=== PATIENT | male | born 1955 | race Caucasian/White ===

== ENCOUNTER 2018-09-20 11:11 | Inpatient (IN) | payer MEDICARE, MEDICAID ==
[2018-09-20] MEDS ORDERED: Heparin Sodium/D5W 25,000 UNITS/500 ML BAG IV SCH (12:15)
[2018-09-20] MEDS ORDERED: Heparin Sodium 5,000 Units/ML Vial IVPUSH ONE ×2 (12:30→19:46)
[2018-09-20] MEDS ORDERED: Flecainide 50 MG Tab PO ONE (12:30)
[2018-09-20] MEDS ORDERED: Diltiazem 25 MG/5 ML SDV IVPUSH ONE (12:45)
[2018-09-20] MEDS ORDERED: Digoxin 500 MCG/2 ML Amp IVPUSH ONE ×3 (12:59→21:00)
[2018-09-20] MEDS: Flecainide 50 MG Tab PO SCH (17:50)
[2018-09-20] MEDS ORDERED: Diltiazem 120 MG Cap.CD PO ONE (18:42)
--- NOTE | 2018-09-20 18:54 | PCM.HP ---
H&P History of Present Illness - General Date of Service: 09/20/18 Source of Information: Patient - History of Present Illness Initial Comments - Free Text/Narative: Keo called this morning and said his heart became irregular Thursday morning at 2 AM and has been irregular ever since. He has a history of Atrial fib. and taking medicine as directed. He is also followed by a Bit Gatherer in [place] on a regular basis. He denies any chest pains or respiratory distress. Onset of Symptoms: Reports: Sudden Duration of Symptoms: Reports: Hour(s): Associated Symptoms: Reports: Diaphoresis, Weakness - Related Data Allergies/Adverse Reactions: Allergies Allergy/AdvReac Type Severity Reaction Status Date / Time POMEGRANIT Allergy Arrhythmias Uncoded 09/20/18 11:59 Home Medications: Home Meds Aspirin [Adult Low Dose Aspirin EC] 81 mg PO DAILY 08/24/13 [History] Metoprolol Tartrate 50 mg PO BID 08/24/13 [History] Flecainide [Tambocor] 100 mg PO BID 12/16/13 [History] Past Medical History Cardiovascular History: Reports: Afib, Arrhythmia, Hypertension Musculoskeletal History: Reports: Fracture, Other (See Below) Other Musculoskeletal History: RIGHT SHOULDER DISLOCATION, HX OF RIGHT WRIST FX - Infectious Disease History Infectious Disease History: Reports: Chicken Pox - Past Surgical History Cardiovascular Surgical History: Reports: Cardiac Ablation Social & Family History - Tobacco Use Smoking Status *Q: Never Smoker - Caffeine Use Caffeine Use: Reports: Coffee - Recreational Drug Use Recreational Drug Use: No H&P Review of Systems - Review of Systems: Review Of Systems: See Below General: Reports: Weakness, Diaphoresis HEENT: Reports: No Symptoms Pulmonary: Reports: No Symptoms Cardiovascular: Reports: Palpitations Gastrointestinal: Reports: No Symptoms Genitourinary: Reports: No Symptoms Musculoskeletal: Reports: No Symptoms Skin: Reports: No Symptoms Psychiatric: Reports: No Symptoms Neurological: Reports: No Symptoms Hematologic/Lymphatic: Reports: No Symptoms Immunologic: Reports: No Symptoms Exam - Exam Exam: See Below - Vital Signs Vital Signs: Last Vital Signs Temp 98.1 F 09/20/18 17:58 Pulse 116 H 09/20/18 17:58 Resp 15 09/20/18 17:58 BP 126/71 09/20/18 17:58 Pulse Ox 95 09/20/18 17:58 Weight: 250 lb 4.8 oz - Exam General: Alert, Oriented, 4 HEENT: PERRLA, Hearing Intact, Mucosa Moist & [place], Nares Patent, Normal Nasal Septum, Posterior Pharynx Clear, Conjunctiva Clear, EOMI, EACs Clear, TMs Clear Neck: Supple, Trachea Midline, 2 Lungs: Clear to Auscultation, Normal Respiratory Effort Cardiovascular: Irregular Rhythm, Tachycardia GI/Abdominal Exam: Normal Bowel Sounds, Soft, Non-Tender, No Organomegaly, No Distention, No Abnormal Bruit, No Mass, Pelvis Stable Back Exam: Normal Inspection Extremities: Normal Inspection Peripheral Pulses: 1+: Radial (L), Radial (R) Skin: Warm, Dry Neurological: Cranial Nerves Intact Neuro Extensive - Mental Status: Alert, Oriented x3 Neuro Extensive - Motor, Sensory, Reflexes: Normal Gait Psychiatric: Alert - Patient Data Lab Results Last 24 hrs: Laboratory Results - last 24 hr 09/20/18 09/20/18 09/20/18 Range/Units 12:24 12:40 12:40 WBC 9.9 (4.5-11.0) K/uL RBC 5.31 (4.30-5.90) M/uL Hgb 16.1 H (12.0-15.0) g/dL Hct 47.1 (40.0-54.0) % MCV 89 (80-98) fL MCH 30 (27-31) pg MCHC 34 (32-36) % Plt Count 308 (150-400) K/uL APTT 24.3 L (27.0-36.0) sec Sodium 140 (140-148) mmol/L Potassium 4.9 (3.6-5.2) mmol/L Chloride 106 (100-108) mmol/L Carbon Dioxide 22 (21-32) mmol/L Anion Gap 12.1 (5.0-14.0) mmol/L BUN 30 H (7-18) mg/dL Creatinine 0.9 (0.8-1.3) mg/dL Est Cr Clr Drug Dosing 89.81 mL/min Estimated GFR (MDRD) > 60 (>60) Glucose 107 H (74-106) mg/dL Calcium 9.1 (8.5-10.1) mg/dL Total Bilirubin 0.4 D (0.2-1.0) mg/dL AST 46 H (15-37) U/L ALT 67 (12-78) U/L Alkaline Phosphatase 77 (46-116) U/L Creatine Kinase 338 H (39-308) U/L CK-MB (CK-2) 9.3 H* (0-3.6) mg/mL Troponin I 0.037 (0.000-0.056) ng/mL Total Protein 7.6 (6.4-8.2) g/dL Albumin 3.7 (3.4-5.0) g/dL Globulin 3.9 H (2.3-3.5) g/dL Albumin/Globulin Ratio 1.0 L (1.2-2.2) Result Diagrams: 09/20/18 12:24 09/20/18 12:40 Problem List Initiated/Reviewed/Updated: Yes Orders Last 24hrs: Active Orders 24 hr Category Date Time Status EKG Documentation Completion [RC] ASDIRECTED Care 09/20/18 13:03 Active Vital Signs [RC] Q2H Care 09/20/18 12:28 Active NPO After Midnight [Nothing per Oral After Midnight Diet 09/21/18 Breakfast Active Diet] [DIET] Regular Diet [DIET] Diet 09/20/18 Dinner Active PTT,PARTIAL THROMBOPLSTIN TIME [COAG] Routine Lab 09/20/18 19:00 Ordered TROPONIN I [CHEM] Routine Lab 09/20/18 19:00 Ordered TROPONIN I [CHEM] Timed Lab 09/21/18 02:00 Ordered Aspirin [Halfprin] Med 09/21/18 09:00 Active 81 mg PO DAILY Digoxin [Lanoxin] Med 09/20/18 18:47 Once 250 mcg IVPUSH ONETIME ONE Digoxin [Lanoxin] Med 09/20/18 21:00 Once 250 mcg IVPUSH ONETIME ONE Diltiazem [Cardizem CD] Med 09/20/18 18:42 Once 240 mg PO ONETIME ONE Flecainide [Tambocor] Med 09/20/18 18:00 Active 150 mg PO BID Heparin Sodium/D5W [Heparin 25,000 Units in D5W 500 ML] Med 09/20/18 12:15 Active 25,000 units in 500 ml IV TITRATE Metoprolol Tartrate [Lopressor] Med 09/20/18 21:00 Active 100 mg PO BID EKG 12 Lead [EK] Stat Ther 09/20/18 13:02 Ordered Medication Orders Aspirin (Halfprin) 81 mg PO DAILY [facility] Digoxin (Lanoxin) 250 mcg IVPUSH ONETIME ONE Stop: 09/20/18 18:48 Digoxin (Lanoxin) 250 mcg IVPUSH ONETIME ONE Stop: 09/20/18 21:01 Diltiazem HCl (Cardizem Cd) 240 mg PO ONETIME ONE Stop: 09/20/18 18:43 Flecainide Acetate (Tambocor) 150 mg PO BID [facility] Last Admin: 09/20/18 17:50 Dose: 150 mg Heparin Sodium/Dextrose (Heparin 25,000 Units In D5w 500 Ml) 25,000 units in 500 mls @ 20 mls/hr IV TITRATE [facility]; Protocol Last Admin: 09/20/18 13:06 Dose: 20 mls/hr, 20 mls/hr Metoprolol Tartrate (Lopressor) 100 mg PO BID [facility] Assessment/Plan Comment:: Assessment/Plan: #1. Atrial fibrillation: Have started him on his medication and will give Cardizem IV push 28 mg. This was done then went bradycardiac after giving carotid massage and mid abdominal pressure. Have started him on Heparin IV drip. I also spoke with the Bit Gatherer who would see him within a month. He is ok with cardioversion as well. Last time we cardioverted him (de- fib) and he stayed in rhythm for several months. Will plan to do cardioversion in the morning at 8:30. I have also increased Flecainide to 150mg Bid. Also started him on Cardizem 240 mg daily. Trop was negative and was elevation of CK - MB at 9.3 normal up to 3.6. Repeat labs are pending. #2. Hypertension: Stable control #2. Hyperlipidemia:
[2018-09-20] MEDS ORDERED: Metoprolol Tartrate 50 MG Tab PO SCH (21:00)
[2018-09-20] MEDS ORDERED: Metoprolol Tartrate 50 MG Tab PO ONE (21:00)
[2018-09-20] MEDS ORDERED: Flecainide 50 MG Tab PO SCH (21:00)
[2018-09-21] MEDS: Flecainide 50 MG Tab PO SCH (08:46)
[2018-09-21] MEDS ORDERED: Aspirin 81 MG Tab.EC PO SCH (09:00)
[2018-09-21] MEDS ORDERED: Metoprolol Succinate 50 MG Tab.ER PO SCH (09:00)
--- NOTE | 2018-09-21 11:26 | PCM.PN ---
- General Info Date of Service: 09/21/18 Functional Status: Reports: Pain Controlled - Review of Systems General: Reports: No Symptoms HEENT: Reports: No Symptoms Pulmonary: Reports: No Symptoms Cardiovascular: Reports: No Symptoms, Other (He converted to NSR at 4 AM) Gastrointestinal: Reports: No Symptoms Genitourinary: Reports: No Symptoms Musculoskeletal: Reports: No Symptoms Skin: Reports: No Symptoms Neurological: Reports: No Symptoms Psychiatric: Reports: No Symptoms - Patient Data Vitals - Most Recent: Last Vital Signs Temp 98.6 F 09/21/18 10:00 Pulse 58 L 09/21/18 10:00 Resp 14 09/21/18 10:00 BP 122/73 09/21/18 10:00 Pulse Ox 95 09/21/18 10:00 Orthostatic Blood Pressure [ 120/85 Standing] Orthostatic Blood Pressure [ 135/79 Sitting] Orthostatic Blood Pressure [ 132/76 Supine] Weight - Most Recent: 250 lb 4.8 oz I&O - Last 24 Hours: Intake & Output 09/20/18 09/21/18 09/21/18 22:59 06:59 14:59 Intake Total 326 282 Output Total 325 150 Balance 1 132 Lab Results Last 24 Hours: Laboratory Results - last 24 hr 09/20/18 09/20/18 09/20/18 Range/Units 12:24 12:40 12:40 WBC 9.9 (4.5-11.0) K/uL RBC 5.31 (4.30-5.90) M/uL Hgb 16.1 H (12.0-15.0) g/dL Hct 47.1 (40.0-54.0) % MCV 89 (80-98) fL MCH 30 (27-31) pg MCHC 34 (32-36) % Plt Count 308 (150-400) K/uL APTT 24.3 L (27.0-36.0) sec Sodium 140 (140-148) mmol/L Potassium 4.9 (3.6-5.2) mmol/L Chloride 106 (100-108) mmol/L Carbon Dioxide 22 (21-32) mmol/L Anion Gap 12.1 (5.0-14.0) mmol/L BUN 30 H (7-18) mg/dL Creatinine 0.9 (0.8-1.3) mg/dL Est Cr Clr Drug Dosing 89.81 mL/min Estimated GFR (MDRD) > 60 (>60) Glucose 107 H (74-106) mg/dL Calcium 9.1 (8.5-10.1) mg/dL Total Bilirubin 0.4 D (0.2-1.0) mg/dL AST 46 H (15-37) U/L ALT 67 (12-78) U/L Alkaline Phosphatase 77 (46-116) U/L Creatine Kinase 338 H (39-308) U/L CK-MB (CK-2) 9.3 H* (0-3.6) mg/mL Troponin I 0.037 (0.000-0.056) ng/mL Total Protein 7.6 (6.4-8.2) g/dL Albumin 3.7 (3.4-5.0) g/dL Globulin 3.9 H (2.3-3.5) g/dL Albumin/Globulin Ratio 1.0 L (1.2-2.2) 09/20/18 09/20/18 09/21/18 Range/Units 19:05 19:05 02:05 WBC (4.5-11.0) K/uL RBC (4.30-5.90) M/uL Hgb (12.0-15.0) g/dL Hct (40.0-54.0) % MCV (80-98) fL MCH (27-31) pg MCHC (32-36) % Plt Count (150-400) K/uL APTT 28.0 (27.0-36.0) sec Sodium (140-148) mmol/L Potassium (3.6-5.2) mmol/L Chloride (100-108) mmol/L Carbon Dioxide (21-32) mmol/L Anion Gap (5.0-14.0) mmol/L BUN (7-18) mg/dL Creatinine (0.8-1.3) mg/dL Est Cr Clr Drug Dosing mL/min Estimated GFR (MDRD) (>60) Glucose (74-106) mg/dL Calcium (8.5-10.1) mg/dL Total Bilirubin (0.2-1.0) mg/dL AST (15-37) U/L ALT (12-78) U/L Alkaline Phosphatase (46-116) U/L Creatine Kinase (39-308) U/L CK-MB (CK-2) (0-3.6) mg/mL Troponin I 0.034 0.044 (0.000-0.056) ng/mL Total Protein (6.4-8.2) g/dL Albumin (3.4-5.0) g/dL Globulin (2.3-3.5) g/dL Albumin/Globulin Ratio (1.2-2.2) 09/21/18 Range/Units 02:05 WBC (4.5-11.0) K/uL RBC (4.30-5.90) M/uL Hgb (12.0-15.0) g/dL Hct (40.0-54.0) % MCV (80-98) fL MCH (27-31) pg MCHC (32-36) % Plt Count (150-400) K/uL APTT 32.3 (27.0-36.0) sec Sodium (140-148) mmol/L Potassium (3.6-5.2) mmol/L Chloride (100-108) mmol/L Carbon Dioxide (21-32) mmol/L Anion Gap (5.0-14.0) mmol/L BUN (7-18) mg/dL Creatinine (0.8-1.3) mg/dL Est Cr Clr Drug Dosing mL/min Estimated GFR (MDRD) (>60) Glucose (74-106) mg/dL Calcium (8.5-10.1) mg/dL Total Bilirubin (0.2-1.0) mg/dL AST (15-37) U/L ALT (12-78) U/L Alkaline Phosphatase (46-116) U/L Creatine Kinase (39-308) U/L CK-MB (CK-2) (0-3.6) mg/mL Troponin I (0.000-0.056) ng/mL Total Protein (6.4-8.2) g/dL Albumin (3.4-5.0) g/dL Globulin (2.3-3.5) g/dL Albumin/Globulin Ratio (1.2-2.2) Med Orders - Current: Current Medications Aspirin (Halfprin) 81 mg PO DAILY [facility] Last Admin: 09/21/18 08:46 Dose: 81 mg Flecainide Acetate (Tambocor) 150 mg PO BID [facility] Last Admin: 09/21/18 08:46 Dose: 150 mg Heparin Sodium/Dextrose (Heparin 25,000 Units In D5w 500 Ml) 25,000 units in 500 mls @ 20 mls/hr IV TITRATE [facility]; Protocol Last Titration: 09/20/18 20:03 Dose: 24 mls/hr, 24 mls/hr Metoprolol Succinate (Toprol Xl) 100 mg PO DAILY [facility] Last Admin: 09/21/18 08:44 Dose: 100 mg Discontinued Medications Digoxin (Lanoxin) 250 mcg IVPUSH ONETIME ONE Stop: 09/20/18 13:00 Last Admin: 09/20/18 13:40 Dose: Not Given Digoxin (Lanoxin) 250 mcg IVPUSH ONETIME ONE Stop: 09/20/18 18:48 Last Admin: 09/20/18 20:05 Dose: 250 mcg Digoxin (Lanoxin) 250 mcg IVPUSH ONETIME ONE Stop: 09/20/18 21:01 Last Admin: 09/20/18 22:28 Dose: 250 mcg Diltiazem HCl (Diltiazem) 28 mg IVPUSH ONETIME ONE Stop: 09/20/18 12:46 Last Admin: 09/20/18 12:49 Dose: 28 mg Diltiazem HCl (Cardizem Cd) 240 mg PO ONETIME ONE Stop: 09/20/18 18:43 Last Admin: 09/20/18 20:06 Dose: 240 mg Flecainide Acetate (Tambocor) 200 mg PO NOW ONE Stop: 09/20/18 12:31 Last Admin: 09/20/18 13:21 Dose: Not Given Flecainide Acetate (Tambocor) 100 mg PO BID [facility] Heparin Sodium (Porcine) (Heparin Sodium) 4,000 units IVPUSH ONETIME ONE Stop: 09/20/18 12:31 Last Admin: 09/20/18 13:06 Dose: 4,000 units Heparin Sodium (Porcine) (Heparin Sodium) 2,000 units IVPUSH .BOLUS ONE Stop: 09/20/18 19:47 Last Admin: 09/20/18 20:03 Dose: 2,000 units Metoprolol Tartrate (Lopressor) 100 mg PO BID [facility] Metoprolol Tartrate (Lopressor) 50 mg PO ONETIME ONE Stop: 09/20/18 21:01 Last Admin: 09/20/18 22:29 Dose: 50 mg - Exam General: Alert, Oriented HEENT: Pupils Equal, Pupils Reactive, EOMI, Mucous Membr. Moist/[place] Neck: Supple Lungs: Clear to Auscultation, Normal Respiratory Effort Cardiovascular: Regular Rate, Regular Rhythm GI/Abdominal Exam: Normal Bowel Sounds, Soft, Non-Tender, No Organomegaly, No Distention, No Abnormal Bruit, No Mass, Pelvis Stable Extremities: Normal Inspection, Normal Range of Motion, Non-Tender, No Pedal Edema, Normal Capillary Refill Peripheral Pulses: 1+: Radial (L), Radial (R) Skin: Warm, Dry, Intact Neurological: No New Focal Deficit Psy/Mental Status: Alert, Normal Affect, Normal Mood - Problem List Review Problem List Initiated/Reviewed/Updated: Yes - My Orders Last 24 Hours: My Active Orders 09/20/18 12:15 Heparin Sodium/D5W [Heparin 25,000 Units in D5W 500 ML] 25,000 units in 500 ml IV TITRATE 09/20/18 12:28 Vital Signs [RC] Q1H 09/20/18 13:02 EKG 12 Lead [EK] Stat 09/20/18 18:00 Flecainide [Tambocor] 150 mg PO BID 09/20/18 19:12 EKG 12 Lead [EK] Routine 09/21/18 07:00 EKG 12 Lead [EK] Routine 09/21/18 07:30 EKG Documentation Completion [RC] ASDIRECTED EKG 12 Lead [EK] Routine 09/21/18 09:00 Aspirin [Halfprin] 81 mg PO DAILY Metoprolol Succinate [Toprol XL] 100 mg PO DAILY 09/21/18 Breakfast Regular Diet [DIET] - Plan Plan:: Assessment/Plan: #1. Atrial fibrillation converted to NSR at 4 AM: Will continue with 150 mg of Flecainide and Diltiazem 240 mg. He had a stress test in the past which was normal. #2. Hypertension: Stable control #2. Hyperlipidemia: Will discharge home today. To follow up with the fountain dispenser. Will see him in the office in 1-2 weeks.
--- NOTE | 2018-09-21 11:35 | PCM.DCSUM1 ---
Discharge Summary - Hospital Course HPI Initial Comments: Admitted after an onset of Atrial Fib feeling weak and having a rapid heart rate. Diagnosis: Stroke: No - Discharge Data Discharge Date: 09/21/18 Discharge Disposition: Home, Self-Care 01 Condition: Good - Discharge Plan *PRESCRIPTION DRUG MONITORING PROGRAM REVIEWED*: Not Applicable *COPY OF PRESCRIPTION DRUG MONITORING REPORT IN PATIENT KENJI: Not Applicable Home Medications: Home Meds Aspirin [Adult Low Dose Aspirin EC] 81 mg PO DAILY 08/24/13 [History] Aspirin [Halfprin] 81 mg PO DAILY tab.ec 09/21/18 [Rx] Flecainide [Tambocor] 150 mg PO BID tablet 09/21/18 [Rx] Metoprolol Succinate [Toprol XL 50mg] 100 mg PO DAILY tab.er 09/21/18 [Rx] - Discharge Summary/Plan Comment DC Time >30 min.: No Discharge Summary/Plan Comment: Assessment/Plan: #1. Atrial fibrillation converted to NSR at 4 AM: Will continue with 150 mg of Flecainide and Diltiazem 240 mg. He had a stress test in the past which was normal. He will start on Eliquis 5 mg twice daily. Trop was neg times 3 also in RBBB. #2. Hypertension: Stable control. 122/73 with heart rate 58 #2. Hyperlipidemia: Will discharge home today. To follow up with the steel loader. Will see him in the office in 1-2 weeks. - General Info Date of Service: 09/21/18 Subjective Update: Admitted with a rapid heart rate in Atrial Feb with weakness. - Review of Systems General: Reports: Weakness, Fatigue HEENT: Reports: No Symptoms Pulmonary: Reports: No Symptoms Cardiovascular: Reports: Palpitations, Dyspnea on Exertion Gastrointestinal: Reports: No Symptoms Genitourinary: Reports: No Symptoms Musculoskeletal: Reports: No Symptoms Skin: Reports: No Symptoms Neurological: Reports: No Symptoms Psychiatric: Reports: No Symptoms - Patient Data Vitals - Most Recent: Last Vital Signs Temp 98.6 F 09/21/18 10:00 Pulse 58 L 09/21/18 10:00 Resp 14 09/21/18 10:00 BP 122/73 09/21/18 10:00 Pulse Ox 95 09/21/18 10:00 Orthostatic Blood Pressure [ 120/85 Standing] Orthostatic Blood Pressure [ 135/79 Sitting] Orthostatic Blood Pressure [ 132/76 Supine] Weight - Most Recent: 250 lb 4.8 oz I&O - Last 24 hours: Intake & Output 09/20/18 09/21/18 09/21/18 22:59 06:59 14:59 Intake Total 326 282 Output Total 325 150 Balance 1 132 Lab Results - Last 24 hrs: Laboratory Results - last 24 hr 09/20/18 09/20/18 09/20/18 Range/Units 12:24 12:40 12:40 WBC 9.9 (4.5-11.0) K/uL RBC 5.31 (4.30-5.90) M/uL Hgb 16.1 H (12.0-15.0) g/dL Hct 47.1 (40.0-54.0) % MCV 89 (80-98) fL MCH 30 (27-31) pg MCHC 34 (32-36) % Plt Count 308 (150-400) K/uL APTT 24.3 L (27.0-36.0) sec Sodium 140 (140-148) mmol/L Potassium 4.9 (3.6-5.2) mmol/L Chloride 106 (100-108) mmol/L Carbon Dioxide 22 (21-32) mmol/L Anion Gap 12.1 (5.0-14.0) mmol/L BUN 30 H (7-18) mg/dL Creatinine 0.9 (0.8-1.3) mg/dL Est Cr Clr Drug Dosing 89.81 mL/min Estimated GFR (MDRD) > 60 (>60) Glucose 107 H (74-106) mg/dL Calcium 9.1 (8.5-10.1) mg/dL Total Bilirubin 0.4 D (0.2-1.0) mg/dL AST 46 H (15-37) U/L ALT 67 (12-78) U/L Alkaline Phosphatase 77 (46-116) U/L Creatine Kinase 338 H (39-308) U/L CK-MB (CK-2) 9.3 H* (0-3.6) mg/mL Troponin I 0.037 (0.000-0.056) ng/mL Total Protein 7.6 (6.4-8.2) g/dL Albumin 3.7 (3.4-5.0) g/dL Globulin 3.9 H (2.3-3.5) g/dL Albumin/Globulin Ratio 1.0 L (1.2-2.2) 09/20/18 09/20/18 09/21/18 Range/Units 19:05 19:05 02:05 WBC (4.5-11.0) K/uL RBC (4.30-5.90) M/uL Hgb (12.0-15.0) g/dL Hct (40.0-54.0) % MCV (80-98) fL MCH (27-31) pg MCHC (32-36) % Plt Count (150-400) K/uL APTT 28.0 (27.0-36.0) sec Sodium (140-148) mmol/L Potassium (3.6-5.2) mmol/L Chloride (100-108) mmol/L Carbon Dioxide (21-32) mmol/L Anion Gap (5.0-14.0) mmol/L BUN (7-18) mg/dL Creatinine (0.8-1.3) mg/dL Est Cr Clr Drug Dosing mL/min Estimated GFR (MDRD) (>60) Glucose (74-106) mg/dL Calcium (8.5-10.1) mg/dL Total Bilirubin (0.2-1.0) mg/dL AST (15-37) U/L ALT (12-78) U/L Alkaline Phosphatase (46-116) U/L Creatine Kinase (39-308) U/L CK-MB (CK-2) (0-3.6) mg/mL Troponin I 0.034 0.044 (0.000-0.056) ng/mL Total Protein (6.4-8.2) g/dL Albumin (3.4-5.0) g/dL Globulin (2.3-3.5) g/dL Albumin/Globulin Ratio (1.2-2.2) 09/21/18 Range/Units 02:05 WBC (4.5-11.0) K/uL RBC (4.30-5.90) M/uL Hgb (12.0-15.0) g/dL Hct (40.0-54.0) % MCV (80-98) fL MCH (27-31) pg MCHC (32-36) % Plt Count (150-400) K/uL APTT 32.3 (27.0-36.0) sec Sodium (140-148) mmol/L Potassium (3.6-5.2) mmol/L Chloride (100-108) mmol/L Carbon Dioxide (21-32) mmol/L Anion Gap (5.0-14.0) mmol/L BUN (7-18) mg/dL Creatinine (0.8-1.3) mg/dL Est Cr Clr Drug Dosing mL/min Estimated GFR (MDRD) (>60) Glucose (74-106) mg/dL Calcium (8.5-10.1) mg/dL Total Bilirubin (0.2-1.0) mg/dL AST (15-37) U/L ALT (12-78) U/L Alkaline Phosphatase (46-116) U/L Creatine Kinase (39-308) U/L CK-MB (CK-2) (0-3.6) mg/mL Troponin I (0.000-0.056) ng/mL Total Protein (6.4-8.2) g/dL Albumin (3.4-5.0) g/dL Globulin (2.3-3.5) g/dL Albumin/Globulin Ratio (1.2-2.2) Med Orders - Current: Current Medications Aspirin (Halfprin) 81 mg PO DAILY [facility] Last Admin: 09/21/18 08:46 Dose: 81 mg Flecainide Acetate (Tambocor) 150 mg PO BID [facility] Last Admin: 09/21/18 08:46 Dose: 150 mg Heparin Sodium/Dextrose (Heparin 25,000 Units In D5w 500 Ml) 25,000 units in 500 mls @ 20 mls/hr IV TITRATE [facility]; Protocol Last Titration: 09/20/18 20:03 Dose: 24 mls/hr, 24 mls/hr Metoprolol Succinate (Toprol Xl) 100 mg PO DAILY [facility] Last Admin: 09/21/18 08:44 Dose: 100 mg Discontinued Medications Digoxin (Lanoxin) 250 mcg IVPUSH ONETIME ONE Stop: 09/20/18 13:00 Last Admin: 09/20/18 13:40 Dose: Not Given Digoxin (Lanoxin) 250 mcg IVPUSH ONETIME ONE Stop: 09/20/18 18:48 Last Admin: 09/20/18 20:05 Dose: 250 mcg Digoxin (Lanoxin) 250 mcg IVPUSH ONETIME ONE Stop: 09/20/18 21:01 Last Admin: 09/20/18 22:28 Dose: 250 mcg Diltiazem HCl (Diltiazem) 28 mg IVPUSH ONETIME ONE Stop: 09/20/18 12:46 Last Admin: 09/20/18 12:49 Dose: 28 mg Diltiazem HCl (Cardizem Cd) 240 mg PO ONETIME ONE Stop: 09/20/18 18:43 Last Admin: 09/20/18 20:06 Dose: 240 mg Flecainide Acetate (Tambocor) 200 mg PO NOW ONE Stop: 09/20/18 12:31 Last Admin: 09/20/18 13:21 Dose: Not Given Flecainide Acetate (Tambocor) 100 mg PO BID [facility] Heparin Sodium (Porcine) (Heparin Sodium) 4,000 units IVPUSH ONETIME ONE Stop: 09/20/18 12:31 Last Admin: 09/20/18 13:06 Dose: 4,000 units Heparin Sodium (Porcine) (Heparin Sodium) 2,000 units IVPUSH .BOLUS ONE Stop: 09/20/18 19:47 Last Admin: 09/20/18 20:03 Dose: 2,000 units Metoprolol Tartrate (Lopressor) 100 mg PO BID [facility] Metoprolol Tartrate (Lopressor) 50 mg PO ONETIME ONE Stop: 09/20/18 21:01 Last Admin: 09/20/18 22:29 Dose: 50 mg - Exam General: Reports: Alert, Oriented HEENT: Reports: Pupils Equal, Pupils Reactive, EOMI, Mucous Membr. Moist/[place] Neck: Reports: Supple Lungs: Reports: Clear to Auscultation, Normal Respiratory Effort Cardiovascular: Reports: Regular Rate, Regular Rhythm GI/Abdominal Exam: Normal Bowel Sounds, Soft, Non-Tender, No Organomegaly, No Distention, No Abnormal Bruit, No Mass, Pelvis Stable Back Exam: Reports: Normal Inspection, Full Range of Motion Extremities: Normal Inspection, Normal Range of Motion, Non-Tender, No Pedal Edema, Normal Capillary Refill Skin: Reports: Warm, Dry, Intact Neurological: Reports: No New Focal Deficit Psy/Mental Status: Reports: Alert, Normal Affect, Normal Mood
== END 2018-09-21 11:59 | disposition home or self-care (01) | DRG 310 ==
LOC: JP.ICU 11:11
PROVIDERS: ADMIT Internal Medicine; ATTEND Internal Medicine
DX: I48.0 Paroxysmal atrial fibrillation (principal); I10 Essential (primary) hypertension; I45.10 Unspecified right bundle-branch block; E78.5 Hyperlipidemia, unspecified; Z79.82 Long term (current) use of aspirin; Z91.018 Allergy to other foods; Z87.898 Personal history of other specified conditions
CPT/HCPCS: 36415; 80053; 82550; 82553; 84484; 85027; 85730; 93005; A9270-GY; J1160; J1644; J3490

== ENCOUNTER 2018-12-30 09:23 | Emergency (ER) | payer MEDICARE, MEDICAID ==
[2018-12-30] MEDS ORDERED: HYDROmorphone 0.5 MG/0.5 ML Syringe IVPUSH ONE (09:53)
--- NOTE | 2018-12-30 09:53 | EDM.PDOC ---
ED HPI GENERAL MEDICAL PROBLEM - General Chief Complaint: Upper Extremity Injury/Pain Stated Complaint: DISLOCATED RIGHT SHOULDER Time Seen by Provider: 12/30/18 09:50 Source of Information: Reports: Patient History Limitations: Reports: No Limitations - History of Present Illness INITIAL COMMENTS - FREE TEXT/NARRATIVE: pt arrived with a painful rt shoulder. He picked something up to throw in the webber and he heard something pop and his houlder was out. He did dislocate it previously several years ago. Onset: Today, Sudden Duration: Hour(s): Location: Reports: Upper Extremity, Right Associated Symptoms: Reports: No Other Symptoms shoulder Pain Score (Numeric/FACES): 7 - Related Data Allergies Allergy/AdvReac Type Severity Reaction Status Date / Time pomegranate Allergy Arrhythmias Verified 12/31/18 09:50 Home Meds: Home Meds Aspirin [Halfprin] 81 mg PO DAILY tab.ec 09/21/18 [Rx] Flecainide [Tambocor] 150 mg PO BID tablet 09/21/18 [Rx] Metoprolol Succinate [Toprol XL 50mg] 100 mg PO DAILY tab.er 09/21/18 [Rx] Past Medical History HEENT History: Reports: Impaired Vision Cardiovascular History: Reports: Afib, Arrhythmia, Hypertension Musculoskeletal History: Reports: Fracture, Other (See Below) Other Musculoskeletal History: RIGHT SHOULDER DISLOCATION, HX OF RIGHT WRIST FX - Infectious Disease History Infectious Disease History: Reports: Chicken Pox - Past Surgical History Cardiovascular Surgical History: Reports: Cardiac Ablation Social & Family History - Tobacco Use Smoking Status *Q: Never Smoker - Caffeine Use Caffeine Use: Reports: Coffee - Recreational Drug Use Recreational Drug Use: No Review of Systems - Review of Systems Review Of Systems: See Below Constitutional: Reports: No Symptoms Eyes: Reports: No Symptoms Ears: Reports: No Symptoms Nose: Reports: No Symptoms Mouth/Throat: Reports: No Symptoms Respiratory: Reports: No Symptoms Cardiovascular: Reports: No Symptoms GI/Abdominal: Reports: No Symptoms Genitourinary: Reports: No Symptoms Musculoskeletal: Reports: Arm Pain, Other (pt has a dislocated rt shoulder. ) Skin: Reports: No Symptoms ED EXAM, GENERAL - Physical Exam Exam: See Below Free Text/Narrative:: pt arrived with a very painful rt shoulder. He feels that it is dislocated. Exam Limited By: No Limitations General Appearance: Alert, Anxious, Moderate Distress Ears: Normal TMs Nose: Normal Inspection Throat/Mouth: Normal Inspection Head: Atraumatic Neck: Normal Inspection Respiratory/Chest: No Respiratory Distress Cardiovascular: Irregularly Irregular GI/Abdominal: Soft, Non-Tender (Male) Exam: Normal Inspection, Deferred Rectal (Males) Exam: Deferred Back Exam: Normal Inspection Extremities: Normal Inspection Neurological: Alert, Oriented, Normal Cognition Psychiatric: Anxious Course - Vital Signs Last Recorded V/S: Last Vital Signs Temp 35.5 C 12/30/18 09:41 Pulse 47 L 12/30/18 11:21 Resp 13 12/30/18 11:21 BP 109/65 12/30/18 11:21 Pulse Ox 92 L 12/30/18 11:21 - Orders/Labs/Meds Meds: Medications Discontinued Medications Generic Name Dose Route Start Last Admin Trade Name Johnny PRN Reason Stop Dose Admin Hydromorphone HCl 0.5 mg 12/30/18 09:53 12/30/18 09:57 Dilaudid IVPUSH 12/30/18 09:54 0.5 mg ONETIME ONE Administration Ondansetron HCl 4 mg 12/30/18 10:00 12/30/18 10:08 Zofran IVPUSH 12/30/18 10:01 4 mg ONETIME ONE Administration Propofol Confirm 12/30/18 10:32 Diprivan 20 Ml Administered 12/30/18 10:33 Dose 200 mg .ROUTE .STK-MED ONE - Re-Assessments/Exams Free Text/Narrative Re-Assessment/Exam: 12/30/18 10:34 pt had a posterior dislocation of his rt shoulder. He had a post reduction film which showed relocation with no visible fractures. Departure - Departure Time of Disposition: 11:45 Disposition: Home, Self-Care 01 Condition: Fair Clinical Impression: Dislocation, shoulder, posterior - Discharge Information Instructions: Shoulder Dislocation, [id number] Referrals: Octavio Dumont Sr, MD [Primary Care Provider] - Forms: ED Department Discharge Care Plan Goals: shoulder imoblizer wear for the next week, motrin 600mg as needed for pain. may be out of the shoulder imoblizer and do lite activity, avoid heavy lifting.appt with Dr Ca in 1 week.
[2018-12-30] MEDS ORDERED: Ondansetron 4 MG/2 ML SDV IVPUSH ONE (10:00)
[2018-12-30] MEDS ORDERED: Propofol 200 MG/20 ML SDV ONE (10:32)
--- NOTE | 2018-12-30 10:59 | CRLCR ---
Indication: Dislocation Technique: Two views of the right shoulder Comparison: None available. Findings/Impression: Bones: An anteroinferior glenohumeral dislocation. No displaced fracture is seen. Joint spaces: Unremarkable. Soft tissues: Unremarkable. Dictated by Myke Harrison MD @ 12/30/2018 10:56:47 AM Dictated by: Myke Harrison MD @ 12/30/2018 10:56:50 (Electronically Signed)
--- NOTE | 2018-12-30 11:10 | CRLCR ---
HISTORY: Shoulder dislocation. Post reduction. TECHNIQUE: Right shoulder 2 views. COMPARISON: Radiographs 12/30/2018. FINDINGS: Glenohumeral joint dislocation has been reduced. Humeral head Hill-Sachs impaction fracture. Degenerative arthrosis of the AC joint. IMPRESSION: Reduction of glenohumeral joint dislocation. Dictated by Thiago Main MD @ Dec 30 2018 11:06AM Signed by Dr. Thiago Main @ Dec 30 2018 11:07AM
== END 2018-12-30 11:45 | disposition home or self-care (01) ==
LOC: JP.ED 09:23
DX: S43.024A Posterior dislocation of right humerus, initial encounter (principal); I48.91 Unspecified atrial fibrillation; Z91.018 Allergy to other foods; Z79.82 Long term (current) use of aspirin; Z79.899 Other long term (current) drug therapy; Z87.891 Personal history of nicotine dependence; X50.0XXA Overexertion from strenuous movement or load, initial encounter
CPT/HCPCS: 23650; 23655; 73020; 73030; 96374; 96375; 99283; J1170; J2405; J2704

== ENCOUNTER 2019-01-11 08:48 | Emergency (ER) | payer MEDICARE, MEDICAID ==
[2019-01-11] MEDS ORDERED: Morphine 2 MG/ML Syringe ONE (08:54)
[2019-01-11] MEDS ORDERED: Morphine 2 MG/ML Syringe IVPUSH ONE (09:00)
[2019-01-11] MEDS ORDERED: Propofol 200 MG/20 ML SDV ONE (09:13)
--- NOTE | 2019-01-12 14:23 | OR ---
DATE OF PROCEDURE: 01/11/2019 PREOPERATIVE DIAGNOSIS: Anterior dislocation, right shoulder, recurrent. POSTOPERATIVE DIAGNOSIS: Anterior dislocation, right shoulder, recurrent. PROCEDURE: Closed reduction, right shoulder. ANESTHESIA: Conscious sedation provided by [facility]. INDICATIONS: Mr. Vidal is a 63-year-old gentleman who presented to the emergency room on 12/30/2018 with dislocation which was reduced. He was attending a physical therapy appointment this morning for that condition and was doing some preliminary stretching and warm-up when he sustained a recurrent dislocation. Attempts were made in the Physical Therapy Department to reduce this without success. He was then transferred to the emergency department for closed reduction under sedation. Risks, benefits, and potential complications of the procedure were discussed. DESCRIPTION OF PROCEDURE: After adequate anesthesia was obtained with propofol, gentle longitudinal traction was applied with internal rotation, which easily reduced the dislocation. The patient tolerated the procedure well. There were no complications. He was discharged from the emergency room, was comfortable. Arrangements were made for further followup and therapy. Octavio Ca MD /[id number]
== END 2019-01-11 10:13 | disposition home or self-care (01) ==
LOC: JP.ED 08:48
DX: M24.411 Recurrent dislocation, right shoulder (principal)
CPT/HCPCS: 23650; J2270; J2704

== ENCOUNTER 2019-02-23 05:49 | Day surgery (SDC) | payer MEDICARE, MEDICAID ==
[2019-02-23] MEDS ORDERED: Nozin Nasal Sanitizer NASBOTH ONE (06:30)
[2019-02-23] MEDS ORDERED: Lactated Ringers 1,000 ML IV SCH (06:30)
[2019-02-23] MEDS ORDERED: Bupivacaine 0.5% 50 ML MDV ONE (06:57)
[2019-02-23] MEDS ORDERED: fentaNYL 250 MCG/5 ML SDV ONE (07:02)
[2019-02-23] MEDS ORDERED: Glycopyrrolate 0.2 MG/ML 5 ML MDV ONE (07:03)
[2019-02-23] MEDS ORDERED: Succinylcholine 200 MG/10 ML MDV ONE (07:03)
[2019-02-23] MEDS ORDERED: Dexamethasone 4 MG/ML SDV ONE (07:03)
[2019-02-23] MEDS ORDERED: Neostigmine Methylsulfate 1 MG/ML 5 ML Syringe ONE (07:03)
[2019-02-23] MEDS ORDERED: Propofol 200 MG/20 ML SDV ONE (07:03)
[2019-02-23] MEDS ORDERED: Rocuronium 50 MG/5 ML Vial ONE (07:03)
[2019-02-23] MEDS ORDERED: Ondansetron 4 MG/2 ML SDV ONE (07:03)
[2019-02-23] MEDS ORDERED: Bupivacaine 0.5% 30 ML SDV ONE (07:05)
[2019-02-23] MEDS ORDERED: ceFAZolin 2 GM in Premix Bag 1 BAG IV ONE (07:20)
--- NOTE | 2019-02-25 12:03 | OR ---
DATE OF PROCEDURE: 02/24/2019 PREOPERATIVE DIAGNOSES: 1. Recurrent dislocation, right shoulder. 2. Rotator cuff tear, right shoulder. POSTOPERATIVE DIAGNOSES: 1. Recurrent dislocation, right shoulder. 2. Large retracted rotator cuff tear, right shoulder. PROCEDURES: 1. Arthroscopy, right shoulder with arthroscopic capsulorrhaphy. 2. Arthroscopic subacromial decompression with acromioplasty. 3. Open rotator cuff repair. ANESTHESIA: Scalene block with sedation. INDICATIONS: Keo is a 63-year-old gentleman, who sustained a dislocation of his right shoulder approximately 2 months ago. He had a repeat dislocation within a month of the first incident and has had several episodes of subluxation and feeling of instability since then. MRI examination reveals evidence of a rotator cuff tear although due to motion artifact, the exact nature of the tear is undetermined. Due to his persistent instability, he now presents for arthroscopic evaluation with capsulorrhaphy and repair of rotator cuff as necessary. Risks, benefits, potential complications of the procedure were discussed. PROCEDURE IN DETAIL: After adequate anesthesia was obtained, the patient was placed in a lateral decubitus position and secured with a waters bag positioner. Right shoulder and arm were then prepped and draped in a sterile fashion. Shoulder was placed in the traction unit with 10 pounds of traction. A standard posterior portal was established and the glenohumeral joint was inspected. This revealed evidence of fraying of the anterior labrum without a elena Bankart lesion. There was evidence of mild Hill-Sachs lesion on the humeral head. Articular cartilage was intact throughout the majority of the glenoid and humeral head. Biceps tendon was absent and appeared chronic. Large rotator cuff tear was present. The anterior portal was established and the edge of the labrum was debrided. Further evaluation revealed the subscapularis to be intact. Due to the combination of the rotator cuff tear and dislocation with capsular separation, the humeral head rode low and anterior. Decision was made to proceed with capsulorrhaphy. Working through the anterior portal, elevator was used to separate the labrum from the edge of the glenoid. This was stripped down along the scapular neck anteriorly and inferiorly. The edge of the glenoid was then roughened with a small round bur. Two Mitek double-loaded Gryphon anchors were then placed on the edge of the glenoid. One limb of each of the suture sets was then passed using an ideal suture passer reefing the anterior-inferior capsule. This was repeated for the second set of sutures. These were then tied and cut. This provided a reinforced buttress anterior glenoid. The scope was then moved to the subacromial space. Lateral portal was established. The bursa was cleared for visualization. A large retracted tear of the cuff was noted. Significant spur on the anterolateral acromion was also present. Radiofrequency ablation was used to clear soft tissues from the undersurface of the acromion and release the coracoacromial ligament. A sadia was then utilized to perform an acromioplasty removing approximately 4 to 5 mm from the undersurface of the acromion and doubling this out laterally. The rotator cuff was evaluated. An elevator was used to release adhesions in the bursal and articular side. This did allow some mobilization, although the retraction was fairly significant. It was determined that at least a partial repair could be obtained with convergence of margins. Due to the level of retraction and some difficulty with visualization, decision was made to proceed with a mini-open repair. The scope was withdrawn. The lateral portal was extended and carried down through the subcutaneous tissues. Hemostasis was obtained with electrocautery. The deltoid was then split in line with its fibers and a self-retaining retractor was placed. Superior surface of the tuberosity had been lightly decorticated with a sadia prior to removal of the scope. Edges of the tendon were evaluated and a FiberWire suture was placed 5 or 6 mm back from the apex and used to converge margins. This was also used as a traction suture for manipulation of the edge of the tendon for placement of other sutures. Two Mitek 5 mm anchors were then placed in the tuberosity. The sutures were then passed through the edges of the tendon. The arm was abducted slightly and the sutures were then tied down. A second row of reinforcing anchor was then placed passing the suture from the convergence and one of the more medial suture sets through the anchor and then securing this into a bone tunnel off the lateral edge of the acromion. This provided coverage of approximately 85% of the footprint of the cuff attachment. The wound was then irrigated. The deltoid was then repaired in a [id number] fashion with #1 Prolene. The skin was closed with 2-0 Vicryl and a running 3-0 Monocryl. Port sites were closed with Monocryl and Steri-Strips were applied. A sterile dressing was then placed. The patient tolerated the procedure well. There were no complications. Taken from the operating room in stable condition. Octavio Ca MD /[id number]
== END 2019-02-23 13:48 | disposition home or self-care (01) ==
LOC: JP.SDS 05:49
PROVIDERS: ATTEND Specialist
DX: M75.101 Unspecified rotator cuff tear or rupture of right shoulder, not specified as traumatic (principal); M24.411 Recurrent dislocation, right shoulder; I10 Essential (primary) hypertension; I48.91 Unspecified atrial fibrillation; I45.10 Unspecified right bundle-branch block; E78.5 Hyperlipidemia, unspecified; E07.9 Disorder of thyroid, unspecified; J44.9 Chronic obstructive pulmonary disease, unspecified; G47.30 Sleep apnea, unspecified; L73.2 Hidradenitis suppurativa
CPT/HCPCS: 23412; 29806; 36415; 80048; 85027; A9270; C1713; J0330; J0690; J1100; J2405; J2704; J2710; J3010; J3490; J7120; 29826

== ENCOUNTER 2020-02-08 16:28 | Inpatient (IN) | payer MEDICARE, MEDICAID ==
[2020-02-08] MEDS ORDERED: Sodium Chloride 0.9% 10 ML Syringe FLUSH PRN (16:45)
--- NOTE | 2020-02-08 17:24 | PCM.HP.2 ---
H&P History of Present Illness - General Date of Service: 02/08/20 Admit Problem/Dx: Admission Diagnosis/Problem Admission Diagnosis/Problem Acute appendicitis Source of Information: Patient - History of Present Illness Initial Comments - Free Text/Narative: Keo has had recurrent abd pain for 2 months. He came in 2 days ago concerned about possible gallbladder problem as the pain was in the upper right quad. KUB was done which showed a large amount of stool throughout the colon consistent with stool impaction. He took citrate of Mag with 5 glasses of water three times and finally started to pass stools. He came to the office this morning and we did another KUB which showed a large amount of air throughout the colon. A CT was ordered with contrast which showed an acute appendicitis with fluid around the appendix. He was admitted for surgery by Dr. Howell after having antibiotics tonight. Onset of Symptoms: Reports: Gradual Duration of Symptoms: Reports: Day(s): Location: Reports: Abdomen Quality: Reports: Sharp, Stabbing Severity: Moderate - Related Data Allergies/Adverse Reactions: Allergies Allergy/AdvReac Type Severity Reaction Status Date / Time pomegranate Allergy Arrhythmias Verified 02/23/19 06:31 Home Medications: Home Meds Aspirin [Halfprin] 81 mg PO DAILY tab.ec 09/21/18 [Rx] Flecainide [Tambocor] 100 mg PO BID 03/03/19 [History] Ibuprofen 1 - 2 tab PO Q6HR PRN 03/03/19 [History] Metoprolol Tartrate 50 mg PO BID 02/08/20 [History] Past Medical History HEENT History: Reports: Impaired Vision Cardiovascular History: Reports: Afib, Arrhythmia, Hypertension Respiratory History: Reports: None Gastrointestinal History: Reports: None Genitourinary History: Reports: None Musculoskeletal History: Reports: Fracture, Other (See Below) Other Musculoskeletal History: RIGHT SHOULDER DISLOCATION, HX OF RIGHT WRIST FX. s/p R rotator cuff repair 02/23/19 Neurological History: Reports: None Psychiatric History: Reports: None Endocrine/Metabolic History: Reports: None Hematologic History: Reports: None Immunologic History: Reports: None Oncologic (Cancer) History: Reports: None Dermatologic History: Reports: None - Infectious Disease History Infectious Disease History: Reports: Chicken Pox - Past Surgical History Head Surgeries/Procedures: Reports: None Cardiovascular Surgical History: Reports: Cardiac Ablation Musculoskeletal Surgical History: Reports: Shoulder Surgery Social & Family History - Family History Family Medical History: Noncontributory - Caffeine Use Caffeine Use: Reports: Coffee H&P Review of Systems - Review of Systems: Review Of Systems: See Below General: Reports: Decreased Appetite HEENT: Reports: No Symptoms Pulmonary: Reports: No Symptoms Cardiovascular: Reports: No Symptoms Gastrointestinal: Reports: Abdominal Pain, Constipation Genitourinary: Reports: No Symptoms Musculoskeletal: Reports: No Symptoms Skin: Reports: No Symptoms Psychiatric: Reports: No Symptoms Neurological: Reports: No Symptoms Hematologic/Lymphatic: Reports: No Symptoms Immunologic: Reports: No Symptoms Exam - Exam Exam: See Below - Vital Signs Weight: 224 lb - Exam General: Alert, Oriented, Cooperative, Mild Distress HEENT: PERRLA, Hearing Intact, Mucosa Moist & Hyden, Nares Patent, Normal Nasal Septum, Posterior Pharynx Clear, Conjunctiva Clear, EOMI, EACs Clear, TMs Clear Neck: Supple, Trachea Midline, 2 Lungs: Clear to Auscultation, Normal Respiratory Effort Cardiovascular: Regular Rate, Regular Rhythm GI/Abdominal Exam: Tender, Other (high pitched bowel sounds) Extremities: Normal Inspection, Normal Range of Motion, Non-Tender, No Pedal Edema, Normal Capillary Refill Peripheral Pulses: 1+: Radial (L), Radial (R) Skin: Warm, Dry, Intact Neurological: Cranial Nerves Intact, Reflexes Equal Bilateral Neuro Extensive - Mental Status: Alert, Oriented x3, Normal Mood/Affect, Normal Cognition Neuro Extensive - Motor, Sensory, Reflexes: CN II-XII Intact, Normal Gait, Normal Reflexes DTR: 1+: Bicep (L), Bicep (R) Psychiatric: Alert, Normal Affect, Normal Mood Sepsis Event Note - Focused Exam Date Exam was Performed: 02/08/20 Time Exam was Performed: 17:13 Problem List Initiated/Reviewed/Updated: Yes Orders Last 24hrs: Active Orders 24 hr Category Date Time Status Patient Status [ADT] Routine ADT 02/08/20 16:40 Active Patient Status [ADT] Routine ADT 02/08/20 17:04 Ordered Antiembolic Devices [RC] .Routine Care 02/08/20 16:44 Active Dietary Supplements [RC] BIDMEALS Care 02/08/20 16:44 Active EKG Documentation Completion [RC] ASDIRECTED Care 02/08/20 17:08 Ordered Height and Weight [RC] UPON Care 02/08/20 17:04 Ordered Intake and Output [RC] QSHIFT Care 02/08/20 17:06 Ordered Oxygen Therapy [RC] PRN Care 02/08/20 17:04 Ordered Peripheral IV Care [RC] . DIRECTED Care 02/08/20 16:45 Active RT Incentive Spirometry [RC] ASDIRECTED Care 02/08/20 16:44 Active VTE/DVT Education [RC] Per Unit Routine Care 02/08/20 17:04 Ordered Vital Signs [RC] Q4H Care 02/08/20 17:04 Ordered CBC WITH AUTO DIFF [HEME] Routine Lab 02/08/20 17:04 Ordered COMPREHENSIVE METABOLIC PN,CMP [CHEM] Routine Lab 02/08/20 17:04 Ordered Ampicillin/Sulbactam Na [Unasyn] 3 gm Med 02/08/20 18:00 Active Sodium Chloride 0.9% [Normal Saline] 100 ml IV Q6H Aztreonam [Azactam] 1 gm Med 02/08/20 17:30 Active Sodium Chloride 0.9% [Normal Saline] 50 ml IV Q8H Dextrose 5%-Lactated Ringers 1,000 ml Med 02/08/20 16:45 Active IV ASDIRECTED Flecainide [Tambocor] Med 02/08/20 21:00 Ordered 100 mg PO BID Metoprolol Succinate [Toprol XL] Med 02/08/20 21:00 Ordered 50 mg PO BID Sodium Chloride 0.9% [Saline Flush] Med 02/08/20 16:45 Active 10 ml FLUSH ASDIRECTED PRN Peripheral IV Insertion Adult [OM.PC] Routine Oth 02/08/20 16:45 Ordered Sequential Compression Device [OM.PC] Routine Oth 02/08/20 16:44 Ordered Resuscitation Status Routine Resus Stat 02/08/20 17:04 Ordered EKG 12 Lead [EK] Routine Ther 02/08/20 17:04 Ordered Medication Orders Dextrose/Lactated Ringer's (Dextrose 5%-Lactated Ringers) 1,000 mls @ 150 mls/hr IV ASDIRECTED THANG Ampicillin Sodium/Sulbactam (Sodium 3 gm/ Sodium Chloride) 100 mls @ 200 mls/hr IV Q6H THANG Aztreonam 1 gm/ Sodium (Chloride) 50 mls @ 100 mls/hr IV Q8H THANG Metoprolol Succinate (Toprol Xl) 50 mg PO BID THANG Non-Formulary Medication (Flecainide [Tambocor]) 100 mg PO BID [facility] Sodium Chloride (Saline Flush) 10 ml FLUSH ASDIRECTED PRN PRN Reason: Keep Vein Open Assessment/Plan Comment:: Assessment/Plan: !#. Acute Appendicitis. Will hydrate and begin antibiotics and surgery planned by Dr. Howell in the morning. #2. HTN: Stable presently #3. Cardiac arrhythmia -lParoxysmal Atrial Fib/flutter. He has been follow by a information technology analyst in [place]. He has had a regular R & R for over one year. #4. Hyperlipidemia- Stable Blood work and ECG is pending. - Mortality Measure Prognosis:: Good
[2020-02-08] MEDS: Dextrose 5%-Lactated Ringers 1,000 ML IV SCH (17:29)
[2020-02-08] MEDS: Ampicillin/Sulbactam Na 3 GM in Sodium Chloride 0.9% 100 ML IV SCH (18:11)
[2020-02-08] MEDS: Acetaminophen/HYDROcodone 325-5 MG Tab PO PRN (20:13)
[2020-02-08] MEDS: Metoprolol Tartrate 50 MG Tab PO SCH (20:14)
[2020-02-08] MEDS: Flecainide 50 MG Tab PO SCH (20:14)
[2020-02-08] MEDS ORDERED: Metoprolol Succinate 50 MG Tab.ER PO SCH (21:00)
[2020-02-08] MEDS: Ondansetron 4 MG/2 ML SDV IVPUSH PRN (23:25)
[2020-02-09] MEDS: Ampicillin/Sulbactam Na 3 GM in Sodium Chloride 0.9% 100 ML IV SCH ×4 (00:13→17:45)
[2020-02-09] MEDS: Dextrose 5%-Lactated Ringers 1,000 ML IV SCH ×4 (00:57→22:44)
[2020-02-09] MEDS: HYDROmorphone 0.5 MG/0.5 ML Syringe IVPUSH PRN ×3 (01:25→06:10)
[2020-02-09] MEDS: Ondansetron 4 MG/2 ML SDV IVPUSH PRN (06:17)
[2020-02-09] MEDS ORDERED: HYDROmorphone/Normal Saline 15 MG/30 ML PCA IV PRN (07:16)
[2020-02-09] MEDS ORDERED: Naloxone 0.4 MG/ML SDV IV PRN (08:00)
--- NOTE | 2020-02-09 08:30 | PCM.PN ---
- General Info Date of Service: 02/09/20 Subjective Update: He continues to have pain and waiting for surgery Functional Status: Reports: Pain Controlled - Review of Systems General: Reports: Weakness HEENT: Reports: No Symptoms Pulmonary: Reports: No Symptoms Cardiovascular: Reports: No Symptoms Gastrointestinal: Reports: Abdominal Pain, Nausea Genitourinary: Reports: No Symptoms Musculoskeletal: Reports: No Symptoms Skin: Reports: No Symptoms Neurological: Reports: No Symptoms Psychiatric: Reports: No Symptoms - Patient Data Vitals - Most Recent: Last Vital Signs Temp 98.1 F 02/09/20 06:45 Pulse 66 02/09/20 06:45 Resp 18 02/09/20 06:45 BP 166/74 H 02/09/20 06:45 Pulse Ox 93 L 02/09/20 06:45 Weight - Most Recent: 224 lb I&O - Last 24 Hours: Intake & Output 02/08/20 02/09/20 02/09/20 22:59 06:59 14:59 Intake Total 1776 Balance 1776 Lab Results Last 24 Hours: Laboratory Results - last 24 hr 02/08/20 02/08/20 02/08/20 Range/Units 17:38 17:38 22:31 WBC 14.0 H (4.5-11.0) K/uL RBC 5.31 (4.30-5.90) M/uL Hgb 16.0 H (12.0-15.0) g/dL Hct 47.1 (40.0-54.0) % MCV 89 (80-98) fL MCH 30 (27-31) pg MCHC 34 (32-36) % Plt Count 110 L (150-400) K/uL Neut % (Auto) 75 H (36-66) % Lymph % (Auto) 15 L (24-44) % Gates % (Auto) 10 H (2-6) % Eos % (Auto) 0 L (2-4) % Baso % (Auto) 0 (0-1) % Sodium 137 L (140-148) mmol/L Potassium 4.2 (3.6-5.2) mmol/L Chloride 101 (100-108) mmol/L Carbon Dioxide 25 (21-32) mmol/L Anion Gap 15.2 H (5.0-14.0) mmol/L BUN 16 (7-18) mg/dL Creatinine 0.9 (0.8-1.3) mg/dL Est Cr Clr Drug Dosing 88.62 mL/min Estimated GFR (MDRD) > 60 (>60) Glucose 179 H (74-106) mg/dL Calcium 8.7 (8.5-10.1) mg/dL Total Bilirubin 0.4 (0.2-1.0) mg/dL AST 26 (15-37) U/L ALT 44 (12-78) U/L Alkaline Phosphatase 85 (46-116) U/L Total Protein 8.0 (6.4-8.2) g/dL Albumin 3.6 (3.4-5.0) g/dL Globulin 4.4 H (2.3-3.5) g/dL Albumin/Globulin Ratio 0.8 L (1.2-2.2) SARS Virus RNA (PCR) Negative (NEGATIVE) Med Orders - Current: Current Medications Hydrocodone Bitart/Acetaminophen ([place] 325-5 Mg) 1 tab PO Q4H PRN PRN Reason: Pain (severe 7-10) Last Admin: 02/08/20 20:13 Dose: 1 tab Documented by: Ropivacaine 50 ml/Dexamethasone 8 mg/Epinephrine HCl 0.4 mg/ Sodium Chloride 27.6 ml 0 ml NERVRT ASDIRECTED COUNTS INCLUDE 234 BEDS AT THE [facility] Flecainide Acetate (Tambocor) 100 mg PO BID COUNTS INCLUDE 234 BEDS AT THE [facility] Last Admin: 02/08/20 20:14 Dose: 100 mg Documented by: Hydromorphone HCl (Dilaudid) 0.5 mg IVPUSH Q2H PRN PRN Reason: pain Last Admin: 02/09/20 06:10 Dose: 0.5 mg Documented by: Hydromorphone HCl (Dilaudid Information Security Architect 15 Mg In Ns 30 Ml) 0 mg IV ASDIRECTED PRN; Protocol PRN Reason: TRACK HOE OPERATOR PAIN CONTROL Dextrose/Lactated Ringer's (Dextrose 5%-Lactated Ringers) 1,000 mls @ 150 mls/hr IV ASDIRECTED COUNTS INCLUDE 234 BEDS AT THE [facility] Last Admin: 02/09/20 00:57 Dose: 150 mls/hr Documented by: Ampicillin Sodium/Sulbactam (Sodium 3 gm/ Sodium Chloride) 100 mls @ 200 mls/hr IV Q6H COUNTS INCLUDE 234 BEDS AT THE [facility] Last Admin: 02/09/20 05:32 Dose: 200 mls/hr Documented by: Aztreonam 1 gm/ Sodium (Chloride) 50 mls @ 100 mls/hr IV Q8H COUNTS INCLUDE 234 BEDS AT THE [facility] Last Admin: 02/09/20 00:57 Dose: 100 mls/hr Documented by: Metoprolol Tartrate (Lopressor) 50 mg PO BID COUNTS INCLUDE 234 BEDS AT THE [facility] Last Admin: 02/08/20 20:14 Dose: 50 mg Documented by: Naloxone HCl (Narcan) 0.1 mg IV ASDIRECTED PRN PRN Reason: decreased respiratory rate Non-Formulary Medication (Tap Block, Pharmacy To Dose) 0 ml NERVRT ASDIRECTED COUNTS INCLUDE 234 BEDS AT THE [facility] Stop: 02/09/20 13:00 Ondansetron HCl (Zofran) 4 mg IVPUSH Q4H PRN PRN Reason: Nausea/Vomiting Last Admin: 02/09/20 06:17 Dose: 4 mg Documented by: Sodium Chloride (Saline Flush) 10 ml FLUSH ASDIRECTED PRN PRN Reason: Keep Vein Open - Exam General: Alert, Oriented HEENT: Pupils Equal, Pupils Reactive, EOMI, Mucous Membr. Moist/[place] Neck: Supple Lungs: Clear to Auscultation, Normal Respiratory Effort Cardiovascular: Regular Rate, Regular Rhythm GI/Abdominal Exam: Distended, Guarding, Tender, Abnormal Bowel Sounds Back Exam: Normal Inspection, Full Range of Motion Extremities: Normal Inspection, Normal Range of Motion, Non-Tender, No Pedal Edema, Normal Capillary Refill Peripheral Pulses: 1+: Radial (L), Radial (R) Skin: Warm, Dry, Intact Sepsis Event Note - Evaluation Sepsis Screening Result: No Definite Risk - Focused Exam Vital Signs: Vital Signs Temp Pulse Resp BP Pulse Ox 02/09/20 06:45 98.1 F 66 18 166/74 H 93 L 02/09/20 04:00 98.8 F 58 L 16 138/68 98 02/09/20 00:16 98.3 F 80 18 130/87 96 Date Exam was Performed: 02/09/20 Time Exam was Performed: 08:26 - Problem List Review Problem List Initiated/Reviewed/Updated: Yes - My Orders Last 24 Hours: My Active Orders 02/08/20 16:40 Patient Status [ADT] Routine 02/08/20 16:44 Antiembolic Devices [RC] .Routine Dietary Supplements [RC] BIDMEALS RT Incentive Spirometry [RC] ASDIRECTED Sequential Compression Device [OM.PC] Routine 02/08/20 16:45 Peripheral IV Care [RC] Q12H Dextrose 5%-Lactated Ringers 1,000 ml IV ASDIRECTED Sodium Chloride 0.9% [Saline Flush] 10 ml FLUSH ASDIRECTED PRN Peripheral IV Insertion Adult [OM.PC] Routine 02/08/20 17:04 Patient Status [ADT] Routine Oxygen Therapy [RC] PRN VTE/DVT Education [RC] Per Unit Routine Vital Signs [RC] Q4H Resuscitation Status Routine EKG 12 Lead [EK] Routine 02/08/20 17:06 Intake and Output [RC] QSHIFT 02/08/20 17:30 Aztreonam [Azactam] 1 gm Sodium Chloride 0.9% [Normal Saline] 50 ml IV Q8H 02/08/20 18:00 Ampicillin/Sulbactam Na [Unasyn] 3 gm Sodium Chloride 0.9% [Normal Saline] 100 ml IV Q6H 02/08/20 18:17 Acetaminophen/HYDROcodone [[place] 325-5 MG] 1 tab PO Q4H PRN 02/08/20 21:00 Flecainide [Tambocor] 100 mg PO BID Metoprolol Tartrate [Lopressor] 50 mg PO BID 02/08/20 22:41 Ondansetron [Zofran] 4 mg IVPUSH Q4H PRN 02/08/20 22:42 HYDROmorphone [Dilaudid] 0.5 mg IVPUSH Q2H PRN 02/09/20 Breakfast NPO After Midnight [Nothing per Oral After Midnight Diet] [DIET] - Plan Plan:: Assessment/Plan: !#. Acute Appendicitis. Surgery planned by Dr. Howell this morning. #2. HTN: Stable presently #3. Cardiac arrhythmia -lParoxysmal Atrial Fib/flutter. He has been follow by a mash filter press operator in [place]. He has had a regular R & R for over one year. #4. Hyperlipidemia- Stable ECG Rt. BBB no acute changes. WBC 14,000, Hb 17, I feel he is medically stable for the planned procedure.
[2020-02-09] MEDS: Flecainide 50 MG Tab PO SCH ×2 (08:41→20:11)
[2020-02-09] MEDS ORDERED: Glycopyrrolate 0.2 MG/ML 5 ML MDV ONE (08:41)
[2020-02-09] MEDS ORDERED: Neostigmine Methylsulfate 1 MG/ML 5 ML Syringe ONE (08:41)
[2020-02-09] MEDS ORDERED: Rocuronium 50 MG/5 ML Vial ONE (08:41)
[2020-02-09] MEDS ORDERED: Succinylcholine 200 MG/10 ML MDV ONE (08:41)
[2020-02-09] MEDS ORDERED: Ondansetron 4 MG/2 ML SDV ONE (08:41)
[2020-02-09] MEDS: Metoprolol Tartrate 50 MG Tab PO SCH ×2 (08:41→20:10)
[2020-02-09] MEDS ORDERED: Propofol 200 MG/20 ML SDV ONE (08:41)
[2020-02-09] MEDS ORDERED: Dexamethasone 4 MG/ML SDV ONE (08:41)
[2020-02-09] MEDS ORDERED: fentaNYL 250 MCG/5 ML SDV ONE (08:42)
[2020-02-09] MEDS: Acetaminophen/HYDROcodone 325-5 MG Tab PO PRN (08:59)
--- NOTE | 2020-02-09 09:36 | HP ---
Keo is asked to be seen as a surgical consult. He was admitted yesterday by primary care provider, Octavio Dumont MD. HISTORY OF PRESENT ILLNESS: Keo had recurrent abdominal pain for 2 months. He states the pain would start in the middle of the night in the right lower quadrant. He would feel a little bit swollen, and he states that by morning, the pain would be gone. 02/07/2020, he states the pain did not go away. He had a KUB x-ray done and showed a large amount of stool, then was given magnesium citrate, and he had bowel movements. A repeat KUB from his PCP showed large amounts of air in the colon, and the CT was ordered and did show acute appendicitis with fluid around his appendix. Currently, he is in the hospital receiving IV fluids, and IV antibiotics of ampicillin sodium/sulbactam 3 g every 6 hours and Azactam 1 g every 8 hours. He is n.p.o. and receiving IV Dilaudid as needed. Pain, he reports in the right lower mid quadrant, no radiation that is sharp, stabbing, associated with constipation as stated. ALLERGIES: POMEGRANATE CAUSES ARRHYTHMIAS. HOME MEDICATIONS: Aspirin 81 mg daily, flecainide 100 mg p.o. b.i.d., ibuprofen 1 to 2 tablets every 6 hours p.r.n. pain, metoprolol tartrate 50 mg p.o. b.i.d. REVIEW OF SYSTEMS: HEENT: Wears corrective lenses for near and farsightedness. CARDIOVASCULAR: History of atrial fibrillation, arrhythmias, hypertension. RESPIRATORY: Denies any cough. GASTROINTESTINAL: As above. GENITOURINARY: No UTI signs and symptoms. MUSCULOSKELETAL: No joint pain or swelling. He has had a right shoulder dislocation and fracture of his right wrist. Surgery on his right shoulder for rotator cuff repair, 02/23/2019. NEUROLOGIC: No headaches, dizziness, loss of coordination. PSYCHIATRIC: Negative for insomnia, depression, or anxiety. ENDOCRINE: Negative. SKIN: Has no rash. Remainder of review of systems negative for any pertinent positives or negatives. PAST SURGICAL HISTORY: Includes inguinal hernia, cardiac ablation, and right rotator cuff repair. SOCIAL HISTORY: Does not drink alcohol, does not smoke, and drinks 1 to 2 cups of coffee a day. FAMILY HISTORY: Negative for any diabetes, cardiac, kidney, liver, or cancer. PHYSICAL EXAMINATION: GENERAL: Keo Vidal is a 64-year-old male. VITAL SIGNS: Height is 6 feet. Weight is 224 pounds. BMI is 30. TPR 98.1, 66, 18, blood pressure 166/74. HEENT: Negative. NECK: Supple. HEART: Regular rate and rhythm without murmur, gallop, or rub. LUNGS: Clear to auscultation all 4 [place]. ABDOMEN: Tenderness noted in the right lower quadrant. EXTREMITIES: Without peripheral edema. SKIN: Negative for rash. NEUROLOGIC: Cranial nerves 2 through 12 intact. Alert and orientated. Mood and affect appropriate. PSYCHIATRIC: Negative. ASSESSMENT: 1. Acute appendicitis. 2. Atrial fibrillation. 3. Hypertension. 4. Hyperlipidemia. PLAN: 1. Scheduled and have consent signed for laparoscopic, possible open appendectomy. Case to follow 02/09/2020. General anesthesia and TAP block. NPO. Surgeon, Jasper Howell MD. 2. Give metoprolol and flecainide now with 1 sip of water. 3. Discontinue [place] and Dilaudid IV. 4. Dilaudid VOLUNTEER RECRUITMENT COORDINATOR. 5. After preoperative evaluation and discussion of possible risks and possible complications, the patient wishes to proceed with surgical procedure. Thank you for this consultation. Shania Dinero PA-C /[id number]
[2020-02-09] MEDS ORDERED: Bupivacaine 0.5%/EPINEPHrine 1:200,000 50 ML MDV ONE (10:06)
[2020-02-09] MEDS ORDERED: ePHEDrine 50 MG/ML SDV ONE (10:18)
[2020-02-09] MEDS ORDERED: Meropenem 500 MG SDV ONE (10:43)
[2020-02-09] MEDS ORDERED: Ropivacaine 50 ML, dexAMETHasone 8 MG, EPINEPHrine 0.4 MG, Sodium Chloride 0.9% 27.6 ML NERVRT SCH ×4 (11:30)
[2020-02-09] MEDS ORDERED: hydrOXYzine HCL 100 MG/2 ML SDV IM PRN (12:53)
[2020-02-09] MEDS: Tamsulosin 0.4 MG Cap.ER PO SCH ×2 (13:12→20:09)
[2020-02-10] MEDS: Ampicillin/Sulbactam Na 3 GM in Sodium Chloride 0.9% 100 ML IV SCH ×4 (01:33→17:15)
--- NOTE | 2020-02-10 07:41 | PCM.PN ---
- General Info Date of Service: 02/10/20 Functional Status: Reports: Pain Controlled - Review of Systems HEENT: Reports: No Symptoms Pulmonary: Reports: No Symptoms Cardiovascular: Reports: No Symptoms Gastrointestinal: Reports: Abdominal Pain Genitourinary: Reports: No Symptoms Musculoskeletal: Reports: No Symptoms Neurological: Reports: No Symptoms Psychiatric: Reports: No Symptoms - Patient Data Vitals - Most Recent: Last Vital Signs Temp 98.2 F 02/09/20 22:45 Pulse 57 L 02/09/20 22:45 Resp 18 02/09/20 22:45 BP 115/59 L 02/09/20 22:45 Pulse Ox 96 02/10/20 01:25 Weight - Most Recent: 224 lb I&O - Last 24 Hours: Intake & Output 02/09/20 02/10/20 02/10/20 22:59 06:59 14:59 Intake Total 1269 2405 Output Total 1160 2040 Balance 109 365 Rodrigue Results Last 24 Hours: Microbiology 02/09/20 10:45 Gram Stain - Final Abdominal Fluid - Aspirate Med Orders - Current: Current Medications Flecainide Acetate (Tambocor) 100 mg PO BID [facility] Last Admin: 02/09/20 20:11 Dose: 100 mg Documented by: Hydromorphone HCl (Dilaudid Line Supervisor 15 Mg In Ns 30 Ml) 0 mg IV ASDIRECTED PRN; Protocol PRN Reason: PRISON PSYCHIATRIST PAIN CONTROL Last Admin: 02/09/20 11:26 Dose: 0.3 mg Documented by: Hydroxyzine HCl (Vistaril) 100 mg IM Q4H PRN PRN Reason: BREAKTHROUGH PAIN Dextrose/Lactated Ringer's (Dextrose 5%-Lactated Ringers) 1,000 mls @ 150 mls/hr IV ASDIRECTED [facility] Last Admin: 02/09/20 22:44 Dose: 150 mls/hr Documented by: Ampicillin Sodium/Sulbactam (Sodium 3 gm/ Sodium Chloride) 100 mls @ 200 mls/hr IV Q6H [facility] Last Admin: 02/10/20 05:11 Dose: 200 mls/hr Documented by: Aztreonam 1 gm/ Sodium (Chloride) 50 mls @ 100 mls/hr IV Q8H [facility] Last Admin: 02/10/20 03:02 Dose: 100 mls/hr Documented by: Metoprolol Tartrate (Lopressor) 50 mg PO BID [facility] Last Admin: 02/09/20 20:10 Dose: 50 mg Documented by: Naloxone HCl (Narcan) 0.1 mg IV ASDIRECTED PRN PRN Reason: decreased respiratory rate Ondansetron HCl (Zofran) 4 mg IVPUSH Q4H PRN PRN Reason: Nausea/Vomiting Last Admin: 02/09/20 06:17 Dose: 4 mg Documented by: Sodium Chloride (Saline Flush) 10 ml FLUSH ASDIRECTED PRN PRN Reason: Keep Vein Open Tamsulosin HCl (Flomax) 0.4 mg PO BEDTIME [facility] Last Admin: 02/09/20 20:09 Dose: 0.4 mg Documented by: Discontinued Medications Hydrocodone Bitart/Acetaminophen ([place] 325-5 Mg) 1 tab PO Q4H PRN PRN Reason: Pain (severe 7-10) Last Admin: 02/09/20 08:59 Dose: 1 tab Documented by: Bupivacaine HCl/Epinephrine Bitart (Marcaine 0.5%/Epinephrine 1:200,000) Confirm Administered Dose 50 ml .ROUTE .STK-MED ONE Stop: 02/09/20 10:07 Last Admin: 02/09/20 11:27 Dose: 20 ml Documented by: Ropivacaine 50 ml/Dexamethasone 8 mg/Epinephrine HCl 0.4 mg/ Sodium Chloride 27.6 ml 0 ml NERVRT ASDIRECTED [facility] Last Admin: 02/09/20 10:54 Dose: 80 syringe Documented by: Dexamethasone (Dexamethasone) Confirm Administered Dose 4 mg .ROUTE .STK-MED ONE Stop: 02/09/20 08:42 Ephedrine Sulfate (Ephedrine Sulfate) Confirm Administered Dose 50 mg .ROUTE .STK-MED ONE Stop: 02/09/20 10:19 Fentanyl (Sublimaze) Confirm Administered Dose 250 mcg .ROUTE .STK-MED ONE Stop: 02/09/20 08:43 Glycopyrrolate (Robinul) Confirm Administered Dose 1 mg .ROUTE .STK-MED ONE Stop: 02/09/20 08:42 Hydromorphone HCl (Dilaudid) 0.5 mg IVPUSH Q2H PRN PRN Reason: pain Last Admin: 02/09/20 06:10 Dose: 0.5 mg Documented by: Meropenem (Merrem) Confirm Administered Dose 500 mg .ROUTE .STK-MED ONE Stop: 02/09/20 10:44 Last Admin: 02/09/20 11:27 Dose: 500 mg Documented by: Neostigmine Methylsulfate (Neostigmine) Confirm Administered Dose 5 mg .ROUTE .STK-MED ONE Stop: 02/09/20 08:42 Non-Formulary Medication (Tap Block, Pharmacy To Dose) 0 ml NERVRT ASDIRECTED [place]ANG Stop: 02/09/20 13:00 Ondansetron HCl (Zofran) Confirm Administered Dose 4 mg .ROUTE .STK-MED ONE Stop: 02/09/20 08:42 Propofol (Diprivan 20 Ml) Confirm Administered Dose 200 mg .ROUTE .STK-MED ONE Stop: 02/09/20 08:42 Rocuronium Thompson (Zemuron) Confirm Administered Dose 50 mg .ROUTE .STK-MED ONE Stop: 02/09/20 08:42 Succinylcholine Chloride (Quelicin) Confirm Administered Dose 200 mg .ROUTE .STK-MED ONE Stop: 02/09/20 08:42 - Exam General: Alert, Oriented HEENT: Pupils Equal, Pupils Reactive, EOMI, Mucous Membr. Moist/[place] Neck: Supple Lungs: Clear to Auscultation, Normal Respiratory Effort Cardiovascular: Regular Rate, Regular Rhythm GI/Abdominal Exam: Soft, No Abnormal Bruit, Pelvis Stable, Guarding Extremities: Normal Inspection, Normal Range of Motion, Non-Tender, No Pedal Edema, Normal Capillary Refill Peripheral Pulses: 1+: Radial (L), Radial (R) Skin: Warm, Dry, Intact Neurological: No New Focal Deficit Psy/Mental Status: Alert, Normal Affect, Normal Mood Sepsis Event Note - Evaluation Sepsis Screening Result: No Definite Risk - Focused Exam Vital Signs: Vital Signs Temp Pulse Pulse Resp BP BP Pulse Ox 02/10/20 01:25 96 02/09/20 22:45 98.2 F 57 L 18 115/59 L 97 02/09/20 20:10 75 140/77 02/09/20 20:00 93 L 02/09/20 19:39 97.7 F 75 16 140/77 93 L Date Exam was Performed: 02/10/20 Time Exam was Performed: 07:36 - Problem List Review Problem List Initiated/Reviewed/Updated: Yes - My Orders Last 24 Hours: My Active Orders 02/09/20 12:17 Ambulate [RC] QID Up to Chair [RC] QID 02/09/20 12:18 Overnight Pulse Oximetry [RC] Click to Edit Pulse Oximetry Continuous Monitoring [OM.PC] Routine 02/09/20 12:19 Incentive Breathing [RT Incentive Spirometry] [RC] Q1HWA Turn, Cough, Deep Breathe [RC] Q1HWA 02/09/20 12:30 Delvalle Catheter Insertion [Insert Urinary Catheter] [OM.PC] Q24H 02/09/20 Dinner Clear Liquid Diet [DIET] - Plan Plan:: Assessment/Plan: !#. Acute Appendicitis. Surgery completed yesterday found abscess with Appendicitis by Dr. Howell' #2. HTN: Stable presently 115 systolic #3. Cardiac arrhythmia -Stable- regular #4. Hyperlipidemia- Stable ECG Rt. BBB no acute changes.
[2020-02-10] MEDS ORDERED: Dextrose 5%-Lactated Ringers 1,000 ML IV SCH (08:00)
[2020-02-10] MEDS: Flecainide 50 MG Tab PO SCH ×2 (08:59→20:13)
[2020-02-10] MEDS: Bisacodyl 5 MG Tab PO SCH ×2 (08:59→20:15)
[2020-02-10] MEDS: Metoprolol Tartrate 50 MG Tab PO SCH ×2 (09:00→20:13)
[2020-02-10] MEDS: Docusate Sodium 100 MG Cap PO SCH ×2 (09:00→20:15)
[2020-02-10] MEDS: oxyCODONE 5 MG Tab PO PRN ×3 (10:35→20:12)
[2020-02-10] MEDS: Tamsulosin 0.4 MG Cap.ER PO SCH (20:13)
[2020-02-11] MEDS: oxyCODONE 5 MG Tab PO PRN ×2 (00:01→03:47)
[2020-02-11] MEDS: Ampicillin/Sulbactam Na 3 GM in Sodium Chloride 0.9% 100 ML IV SCH ×2 (00:01→05:58)
[2020-02-11] MEDS: Ibuprofen 600 MG Tab PO SCH ×2 (00:42→06:01)
[2020-02-11] MEDS ORDERED: Magnesium Hydroxide 400 MG/5 ML Susp 30 ML Cup PO PRN (07:32)
[2020-02-11] MEDS: Docusate Sodium 100 MG Cap PO SCH (08:32)
[2020-02-11] MEDS: Metoprolol Tartrate 50 MG Tab PO SCH (08:32)
[2020-02-11] MEDS: Bisacodyl 5 MG Tab PO SCH (08:32)
[2020-02-11] MEDS: Flecainide 50 MG Tab PO SCH (08:33)
[2020-02-11] MEDS ORDERED: Ibuprofen 600 MG Tab PO SCH (12:00)
--- NOTE | 2020-02-13 12:52 | PN ---
DATE OF SERVICE: 02/10/2020 The patient has been afebrile status post laparoscopic appendectomy and drainage of periappendiceal abscess yesterday. Gram stain shows gram-positive cocci, so we will get rid of the Azactam and continue with the Unasyn. We will otherwise give him some bowel stimulation and will go up to regular diet. He probably will be ready for home tomorrow. Jasper Howell MD /[id number]
--- NOTE | 2020-02-13 13:53 | DISCH ---
FINAL DIAGNOSIS: Acute appendicitis with inflammatory extension onto cecum and pericolonic abscess. SECONDARY DIAGNOSES: 1. History of atrial fibrillation, status post radiofrequency ablation. 2. History of hypertension. SUMMARY: This is a 64-year-old presenting with some abdominal pain last week. The patient had less than straightforward presentation initially, but eventual diagnosis of acute appendicitis was established. He was admitted on antibiotics, underwent laparoscopic appendectomy on 02/07. The appendix inflammation extended up onto the cecum, so partial cystectomy was also performed, and the patient had pericolonic abscess extending from the pelvis at the base of cecum up along the right pericolic gutter, which was drained. ER culture at this point is growing out Strep viridans, which should be sensitive to the Augmentin that the patient will be sent home on as well the amoxicillin that he has been having IV. At this point, he is eating and passing gas. No bowel movement as of yet. He will be sent home with 2 doses of milk of magnesia. Otherwise, we will keep his current home medications plus oxycodone 5 mg p.o. q.4 hours p.r.n. pain, Augmentin 875 mg p.o. b.i.d. x5 days, Tylenol and ibuprofen on a p.r.n. basis. Followup will be with Shania Dinero at [facility] on 02/20/2020.
--- NOTE | 2020-02-14 13:22 | OR ---
DATE OF PROCEDURE: 02/09/2020 SURGEON: Jasper Howell MD PREOPERATIVE DIAGNOSIS: Acute appendicitis. POSTOPERATIVE DIAGNOSES: Perforated appendicitis with inflammatory extension onto cecum and associated pericolonic abscess. OPERATIVE PROCEDURES: Diagnostic laparoscopy, 1. Partial cecectomy including removal of overlying appendix (70177). 2. Drainage of pericolonic abscess (18189). ANESTHESIA: General. APPAREL MACHINERY INSTRUCTOR: Shania Dinero PA-C INDICATIONS FOR PROCEDURE: This is a 64-year-old admitted with a picture of acute appendicitis. The presentation was initially not entirely straightforward, but eventually he was confirmed to have appendicitis by CT scan. The plan is to proceed with a diagnostic laparoscopy, laparotomy if necessary, and appendectomy with other procedures as indicated based on operative findings. Potential risks of the procedure including bleeding, infection, leaks from various GI tract closures were all reviewed, and the patient wishes to proceed. DETAILS OF PROCEDURE: The patient was taken to the operating room and placed in a supine position. After general endotracheal anesthesia was induced, a Delvalle catheter was inserted, and the abdomen was prepped and draped. In the left upper quadrant, a transverse incision was initially made and the peritoneal cavity entered under direct vision with an Optiview trocar, inflated to 15 mmHg with CO2. Laparoscope was then reinserted and no underlying trocar insertion site injuries were seen. Following this, trocars in the left lower quadrant and right upper quadrant were both placed. Bilateral transversus abdominis plane blocks were then placed as well under direct vision from within. The patient was noted to have quite a bit of inflammation around the appendix, as this was peeled away from the pelvic and abdominal wall lateral to the cecum. It became evident that there was quite a bit of inflammation extending down onto the cecum, which would require a partial cecectomy to achieve an adequately safe staple line. There was also pericolonic abscess extending from just below the liver along the pericolic gutter, down along the length of the ascending colon and cecum, and somewhat into the pelvis. Cultures of this were obtained, as it was evacuated. At this point, the mesoappendix was then divided with Harmonic scalpel, down to the level of base of the cecum. Cecum was then able to be mobilized upward and a wedge of cecum was then excised using two firings of the KENDRICK purple loads. Care was taken to avoid impingement on the ileocecal valve. That specimen was then placed into a specimen bag and retrieved through the left lower trocar site. The area of dissection was then inspected. Where we reinforced the cecal closure site, 4 mL of fibrin sealant was placed across that area and then omentum covered up that area as well. At this point, the intraoperative drainage appeared to be satisfactory enough that a drain was not felt to be necessary. Trocars were then sequentially removed, the fascia at each site closed with 0 Vicryl stitch, and the skin with 4-0 Vicryl skin stitch. Physician insurance underwriting assistant, Shania Dinero, played an essential role in assisting in this case; helping to position the patient, retract structures as needed, as well as suturing and cutting sutures when indicated. Her presence improved patient safety and decreased the operative time. Jasper Howell MD /[id number]
== END 2020-02-11 12:04 | disposition home or self-care (01) | DRG 331 ==
LOC: JP.MS 16:28
PROVIDERS: ADMIT Internal Medicine; ATTEND Internal Medicine
PROC: 0DBH4ZZ Excision of Cecum, Percutaneous Endoscopic Approach (ICD-10-PCS; principal; 2020-02-09)
PROC: 0DTJ4ZZ Resection of Appendix, Percutaneous Endoscopic Approach (ICD-10-PCS; 2020-02-09)
PROC: 0D9 Gastrointestinal System, Drainage (ICD-10-PCS; 2020-02-09)
DX: K35.33 Acute appendicitis with perforation, localized peritonitis, and gangrene, with abscess (principal); I48.91 Unspecified atrial fibrillation; I10 Essential (primary) hypertension; H54.7 Unspecified visual loss; I49.9 Cardiac arrhythmia, unspecified; E78.5 Hyperlipidemia, unspecified; K40.90 Unilateral inguinal hernia, without obstruction or gangrene, not specified as recurrent; Z79.82 Long term (current) use of aspirin; Z88.8 Allergy status to other drugs, medicaments and biological substances; Z88.6 Allergy status to analgesic agent; Z98.890 Other specified postprocedural states; Z91.018 Allergy to other foods; Z20.828 Contact with and (suspected) exposure to other viral communicable diseases
CPT/HCPCS: 36415; 80053; 85025; 87070; 87075; 87077; 87205; 88304; 93005; 93010; A9270-GY; J0171; J0295; J0330; J1100; J1170; J2185; J2405; J2704; J2710; J2795; J3010; J3410; J3490; J7050; J7121; U0002

== ENCOUNTER 2022-06-23 08:12 | Inpatient (IN) | payer MEDICARE, MEDICAID ==
[2022-06-23] MEDS ORDERED: fentaNYL 100 MCG/2 ML SDV ONE ×2 (08:20→12:29)
[2022-06-23] MEDS ORDERED: Propofol 200 MG/20 ML SDV ONE ×3 (08:20→13:07)
[2022-06-23] MEDS ORDERED: Midazolam 1 MG/ML 2 ML SDV ONE (08:20)
[2022-06-23] MEDS ORDERED: ceFAZolin 2 GM in Sodium Chloride 0.9% 50 ML IV ONE (08:30)
[2022-06-23] MEDS ORDERED: Lactated Ringers 1,000 ML IV SCH (08:30)
[2022-06-23] MEDS ORDERED: ceFAZolin 2 GM in Premix Bag 1 BAG IV ONE (08:30)
[2022-06-23] MEDS: Nozin Nasal Sanitizer NASBOTH SCH ×2 (09:05→21:54)
[2022-06-23 09:29] LABS: ESTIMATED GFR 92 mL/min (>60)
[2022-06-23] MEDS ORDERED: Lactated Ringers 1,000 ML ONE (12:08)
[2022-06-23] MEDS: Bupivacaine 0.5% 50 ML MDV ONE ×3 (12:38→13:38)
[2022-06-23] MEDS ORDERED: Sodium Chloride 0.9% 10 ML ONE (13:02)
[2022-06-23] MEDS ORDERED: ePHEDrine 50 MG/ML SDV ONE (13:02)
[2022-06-23] MEDS ORDERED: Ondansetron 4 MG Tab.DIS PO PRN (14:04)
[2022-06-23] MEDS ORDERED: Ondansetron 4 MG/2 ML SDV IVPUSH PRN (14:04)
[2022-06-23] MEDS ORDERED: Magnesium Hydroxide 400 MG/5 ML Susp 30 ML Cup PO PRN (14:04)
[2022-06-23] MEDS ORDERED: Morphine 2 MG/ML SYRINGE SUBCUT PRN (14:04)
[2022-06-23] MEDS ORDERED: Sodium Chloride 0.9% 1,000 ML IV SCH (14:15)
[2022-06-23] MEDS: Ketorolac 30 MG/ML SDV IVPUSH SCH (16:10)
[2022-06-23] MEDS: Acetaminophen 325 MG Tab PO SCH ×2 (16:11→21:56)
[2022-06-23] MEDS: traMADol 50 MG Tab PO PRN ×2 (17:17→21:54)
[2022-06-23] MEDS: ceFAZolin 1 GM in Premix Bag 1 BAG IV SCH (18:06)
[2022-06-23] MEDS ORDERED: Nozin Nasal Sanitizer NASBOTH SCH (21:00)
[2022-06-23] MEDS: Metoprolol Tartrate 50 MG Tab PO SCH (21:54)
[2022-06-23] MEDS: Docusate Sodium 100 MG Cap PO SCH (21:54)
[2022-06-23] MEDS: Flecainide 50 MG Tab PO SCH (21:56)
[2022-06-24] MEDS: Ketorolac 30 MG/ML SDV IVPUSH SCH ×3 (00:45→15:11)
[2022-06-24] MEDS: ceFAZolin 1 GM in Premix Bag 1 BAG IV SCH (02:50)
[2022-06-24] MEDS: Acetaminophen 325 MG Tab PO SCH ×4 (04:20→21:12)
[2022-06-24] MEDS: traMADol 50 MG Tab PO PRN ×3 (08:05→21:12)
[2022-06-24] MEDS: Flecainide 50 MG Tab PO SCH ×2 (08:06→21:11)
[2022-06-24] MEDS: Docusate Sodium 100 MG Cap PO SCH ×2 (08:06→21:12)
[2022-06-24] MEDS: Metoprolol Tartrate 50 MG Tab PO SCH ×2 (08:06→21:11)
[2022-06-24] MEDS: Nozin Nasal Sanitizer NASBOTH SCH ×2 (08:06→21:12)
[2022-06-24] MEDS: Enoxaparin 30 MG/0.3 ML Syringe SUBCUT SCH (08:06)
[2022-06-24] MEDS ORDERED: Morphine 2 MG/ML SYRINGE IVPUSH PRN (15:12)
[2022-06-24] MEDS: Cyclobenzaprine 10 MG Tab PO PRN (18:11)
[2022-06-24] MEDS: Psyllium Husk Powder Sugar Free 5.85 GM Packet PO SCH (18:12)
[2022-06-25] MEDS: Ketorolac 30 MG/ML SDV IVPUSH SCH ×2 (00:10→07:22)
[2022-06-25] MEDS: Cyclobenzaprine 10 MG Tab PO PRN ×4 (00:20→21:37)
[2022-06-25] MEDS: Acetaminophen 325 MG Tab PO SCH ×4 (03:28→21:37)
[2022-06-25] MEDS: traMADol 50 MG Tab PO PRN ×3 (07:22→19:54)
[2022-06-25] MEDS: Docusate Sodium 100 MG Cap PO SCH ×2 (08:41→20:28)
[2022-06-25] MEDS: Nozin Nasal Sanitizer NASBOTH SCH ×2 (08:41→20:28)
[2022-06-25] MEDS: Metoprolol Tartrate 50 MG Tab PO SCH ×2 (08:42→20:29)
[2022-06-25] MEDS: Enoxaparin 30 MG/0.3 ML Syringe SUBCUT SCH (08:42)
[2022-06-25] MEDS: Flecainide 50 MG Tab PO SCH ×2 (08:43→20:29)
[2022-06-25] MEDS: Psyllium Husk Powder Sugar Free 5.85 GM Packet PO SCH (08:43)
[2022-06-26] MEDS: traMADol 50 MG Tab PO PRN ×3 (01:25→12:20)
[2022-06-26] MEDS: Acetaminophen 325 MG Tab PO SCH ×2 (03:36→09:45)
[2022-06-26] MEDS: Cyclobenzaprine 10 MG Tab PO PRN (03:36)
[2022-06-26] MEDS: Docusate Sodium 100 MG Cap PO SCH (09:45)
[2022-06-26] MEDS: Metoprolol Tartrate 50 MG Tab PO SCH (09:45)
[2022-06-26] MEDS: Enoxaparin 30 MG/0.3 ML Syringe SUBCUT SCH (09:46)
[2022-06-26] MEDS: Flecainide 50 MG Tab PO SCH (09:46)
[2022-06-26] MEDS: Nozin Nasal Sanitizer NASBOTH SCH (09:46)
[2022-06-26] MEDS: Psyllium Husk Powder Sugar Free 5.85 GM Packet PO SCH (10:02)
== END 2022-06-26 12:46 | DRG 470 ==
LOC: JP.SDS 08:12 → JP.2SS 14:04 → JP.SDS 06-24 11:29 → JP.2SS 06-24 11:30
PROVIDERS: ADMIT Specialist; ATTEND Specialist
PROC: 0SR902A Replacement of Right Hip Joint with Metal on Polyethylene Synthetic Substitute, Uncemented, Open Approach (ICD-10-PCS; principal; 2022-06-23)
DX: M16.11 Unilateral primary osteoarthritis, right hip (principal); I10 Essential (primary) hypertension; G47.33 Obstructive sleep apnea (adult) (pediatric); J44.9 Chronic obstructive pulmonary disease, unspecified; E78.5 Hyperlipidemia, unspecified; Z20.822 Contact with and (suspected) exposure to COVID-19
CPT/HCPCS: 36415; 72170; 80053; 85027; 86850; 86900; 86901; 97110-GP; 97116-GP; 97530-GP; 97535-GO; 97535-GP; A9270-GY; C1713; C1776; J0690; J1650; J1885; J2250; J2704; J3010; J3490; J7030; J7120; U0002

== ENCOUNTER → 2022-10-01 | Day surgery (SDC) | payer MEDICARE, MEDICAID ==
[~2022-10-01] MED LIST: Acetaminophen/HYDROcodone 325-5 MG Tab PO ONE; Bupivacaine 0.5% 30 ML SDV INJECT ONE; Bupivacaine 0.5% 30 ML SDV ONE; Dexamethasone 4 MG/ML SDV IV ONE; Glycopyrrolate 0.2 MG/ML 5 ML MDV IV ONE; Lactated Ringers 1,000 ML IV SCH; Midazolam 1 MG/ML 2 ML SDV ONE; Neostigmine Methylsulfate 1 MG/ML 5 ML Syringe IV ONE; Nozin Nasal Sanitizer NASBOTH ONE; Ondansetron 4 MG/2 ML SDV IVPUSH ONE; Propofol 200 MG/20 ML SDV ONE; Rocuronium 50 MG/5 ML Vial IV ONE; Succinylcholine 200 MG/10 ML MDV IV ONE; Sugammadex Sodium 200 MG/2 ML VIAL IV ONE; ceFAZolin 2 GM in Sodium Chloride 0.9% 50 ML IV ONE; fentaNYL 100 MCG/2 ML SDV ONE; fentaNYL 250 MCG/5 ML SDV IV ONE
[2022-10-01 07:47] LABS: ESTIMATED GFR 92 mL/min (>60)
== END ==
LOC: JP.SDS 06:21 → JP.ORTCL 06:21 → EDSTATUS 09:30
PROVIDERS: ATTEND Specialist
DX: M75.101 Unspecified rotator cuff tear or rupture of right shoulder, not specified as traumatic (principal); E66.9 Obesity, unspecified; Z68.36 Body mass index [BMI] 36.0-36.9, adult; Z91.018 Allergy to other foods; Z98.890 Other specified postprocedural states; Z96.649 Presence of unspecified artificial hip joint; Z79.899 Other long term (current) drug therapy
CPT/HCPCS: 36415; 80053; 85025; A9270-GY; J0330; J1100; J2250; J2405; J2704; J2710; J3010; J3490; J7120

== ENCOUNTER 2023-03-26 09:00 | Emergency (ER) | payer MEDICARE, MEDICAID ==
[2023-03-26 09:16] LABS: BASOPHILS ABSOLUTE AUTO 0.05 K/uL (0.00-0.10); BASOPHILS PERCENT AUTO 0.6 % (0.1-1.3); EOSINOPHILS ABSOLUTE AUTO 0.17 K/uL (0.00-0.40); EOSINOPHILS PERCENT AUTO 2.1 % (0.0-5.4); HEMATOCRIT 46.8 % (38.4-49.7); HEMOGLOBIN 16.5 g/dL (12.9-16.9); IMMATURE GRAN ABSOLUTE AUTO 0.03 K/uL (0.00-0.23); IMMATURE GRAN PERCENT AUTO 0.4 % (0.0-0.7); LYMPHOCYTES ABSOLUTE AUTO 1.54 K/uL (0.8-3.3); LYMPHOCYTES PERCENT AUTO 18.9 % (11.4-47.7); MEAN CORPUSCULAR HEMOGLOBIN 30.9 pg (31.6-35.5); MEAN CORPUSCULAR HGB CONC 35.3 g/dL (31.6-35.5); MEAN CORPUSCULAR VOLUME 87.6 fL (81.4-99.0); MONOCYTES ABSOLUTE AUTO 0.66 K/uL (0.20-0.90); MONOCYTES PERCENT AUTO 8.1 % (3.3-12.6); NEUTROPHILS ABSOLUTE AUTO 5.68 K/uL (1.0-7.6); NEUTROPHILS PERCENT AUTO 69.9 % (40.0-78.1); PLATELET COUNT,PLT 223 K/uL (130-375); RED BLOOD CELL COUNT 5.34 M/uL (4.14-5.76); WHITE BLOOD CELL COUNT,WBC 8.1 K/uL (3.2-11.0)
[2023-03-26] MEDS ORDERED: Diltiazem 25 MG/5 ML SDV IVPUSH ONE (09:32)
[2023-03-26 09:56] LABS: ALANINE AMINOTRANSFERASE,ALT 34 U/L (12-78); ALBUMIN 3.5 g/dL (3.4-5.0); ALKALINE PHOSPHATASE 84 U/L (46-116); ASPARTATE AMNIOTRANSFERASE,AST 23 U/L (15-37); BILIRUBIN TOTAL 0.4 mg/dL (0.2-1.0); BLOOD UREA NITROGEN,BUN 25 mg/dL (7-18); CALCIUM 8.8 mg/dL (8.5-10.1); CARBON DIOXIDE,CO2 28 mmol/L (21-32); CHLORIDE,CL 103 mmol/L (100-108); EST CRCL DRUG DOSING (CG) 76.52 mL/min; ESTIMATED GFR 81 mL/min (>60); GLUCOSE RANDOM 157 mg/dL (74-106); POTASSIUM,K 4.3 mmol/L (3.6-5.2); SODIUM,NA 137 mmol/L (140-148)
[2023-03-26 09:58] LABS: ANION GAP 10.3 mmol/L (5.0-14.0)
[2023-03-26 10:06] LABS: TROPONIN I HIGH SENSITIVITY 11.6 pg/mL (<=60.3); TSH ULTRASENSITIVE 0.999 uIU/mL (0.358-3.740)
[2023-03-26] MEDS ORDERED: Rivaroxaban 10 MG Tab PO ONE (11:30)
[2023-03-26] MEDS ORDERED: Flecainide 50 MG Tab PO ONE (11:31)
== END 2023-03-26 13:00 | disposition home or self-care (01) ==
LOC: JP.ED 09:00
DX: I48.91 Unspecified atrial fibrillation (principal); I10 Essential (primary) hypertension; Z91.018 Allergy to other foods; Z79.82 Long term (current) use of aspirin; Z79.899 Other long term (current) drug therapy; Z86.16 Personal history of COVID-19; Z90.49 Acquired absence of other specified parts of digestive tract
CPT/HCPCS: 36415; 80053; 83735; 84443; 84484; 85025; 93010; 96374; 99283; 99284; A9270; J3490